=== PATIENT | female | born 1945 | race African-American/Black ===

== ENCOUNTER 2016-08-24 22:50 | Emergency (ER) | payer MEDICARE ==
--- NOTE | 2016-08-24 23:44 | RAD ---
CHEST ONE VIEW 08/24/16 HISTORY: Dyspnea. COMPARISON: Chest one view 04/30/16. FINDINGS: The heart size is enlarged with pulmonary venous congestion. No pneumothorax or large effusion. No a cute osseous abnormality. IMPRESSION: Cardiomegaly with mild pulmonary venous congestion. POS: [facility]
[2016-08-24] MEDS ORDERED: Furosemide 40 MG/4 ML VIAL ONE (23:45)
[2016-08-24 23:47] LABS: #Eosinphils 0.1 thou/uL (0.0-0.7); #Lymphocytes 2.1 thou/uL (1.20-3.40); #Monocytes 0.7 thou/uL (0.11-0.59); #Neutrophils 8.3 thou/uL (1.40-6.50); %Basophils 0.4 % (0.0-1.0); %Eosinophils 0.7 % (0.0-10.0); %Lymphocytes 18.5 % (21.0-51.0); %Monocytes 6.1 % (0.0-10.0); Hypochromia MODERATE=16-30 cells (100X) (0-5/hpf); Mean Platelet Volume 11.2 fL (7.4-10.4); Microcytosis SLIGHT = 6-15 cells (100X) (0-5/hpf); Ovalocytes SLIGHT = 2-5 cells (100X) (0-1/hpf); Red Blood Cell (RBC) Count 4.38 mill/uL (4.20-5.40); White Blood Cell (WBC) Count 11.2 thou/uL (4.8-10.8)
[2016-08-24 23:48] LABS: ALT (SGPT) 12 U/L (0-55); AST (SGOT) 9 U/L (5-34); Alkaline Phosphatase 49 U/L (40-150); Anion Gap 12 mmol/L (10-20); BUN (Urea Nitrogen) 14 mg/dL (9.8-20.1); Bilirubin, Total 0.3 mg/dL (0.2-1.2); CK (CPK) 41 U/L (29-168); Calc. Creatinine Clearance 0 mL/min (70-130); Calcium 8.8 mg/dL (7.8-10.44); Carbon Dioxide 30 mmol/L (23-31); Chloride 106 mmol/L (98-107); Estimated GFR-MDRD 69; Globulin 3.4 g/dL (2.4-3.5); Protein, Total 6.7 g/dL (5.8-8.1)
[2016-08-24 23:49] LABS: Troponin I 0.031 ng/mL (< 0.028)
== END 2016-08-25 01:31 | disposition short-term general hospital (02) ==
LOC: NAV ERS 22:50
DX: I50.9 Heart failure, unspecified (principal); I25.2 Old myocardial infarction; I10 Essential (primary) hypertension; J45.909 Unspecified asthma, uncomplicated; F32.9 Major depressive disorder, single episode, unspecified; F17.210 Nicotine dependence, cigarettes, uncomplicated
CPT/HCPCS: 51702; 71010; 80053; 82550; 82553; 83880; 84484; 85025; 93005; 94760; 96374; J1940

== ENCOUNTER 2018-09-16 10:34 | Emergency (ER) | payer MEDICARE ==
[2018-09-16 11:31] LABS: #Basophils 0.1 thou/uL (0.0-0.2); #Lymphocytes 1.2 thou/uL (1.20-3.40); #Monocytes 0.6 thou/uL (0.11-0.59); #Neutrophils 5.9 thou/uL (1.40-6.50); %Basophils 0.8 % (0.0-1.0); %Eosinophils 0.5 % (0.0-10.0); %Lymphocytes 15.2 % (21.0-51.0); %Monocytes 7.9 % (0.0-10.0); %Neutrophils 75.6 % (42.0-75.0); Hemoglobin 7.9 g/dL (12.0-16.0); Hypochromia SLIGHT = 6-15 cells (100X) (0-5/hpf); MDiff Complete? YES; Mean Corpuscular HGB CONC 29.2 g/dL (32.0-36.0); Mean Corpuscular Hemoglobin 24.8 pg (27.0-31.0); Mean Platelet Volume 9.9 fL (7.4-10.4); Ovalocytes SLIGHT = 2-5 cells (100X) (0-1/hpf); Platelet Count 170 thou/uL (130-400); RBC Distribution Width 16.9 % (11.5-14.5); Red Blood Cell (RBC) Count 3.17 mill/uL (4.20-5.40); White Blood Cell (WBC) Count 7.8 thou/uL (4.8-10.8)
[2018-09-16 11:46] LABS: ALT (SGPT) 25 U/L (8-55); AST (SGOT) 27 U/L (5-34); Albumin 3.9 g/dL (3.4-4.8); Alkaline Phosphatase 68 U/L (40-150); Anion Gap 13 mmol/L (10-20); BUN (Urea Nitrogen) 39 mg/dL (9.8-20.1); Bilirubin, Total 0.5 mg/dL (0.2-1.2); Calc. Creatinine Clearance 0 mL/min (70-130); Calcium 9.2 mg/dL (7.8-10.44); Carbon Dioxide 25 mmol/L (23-31); Chloride 105 mmol/L (98-107); Estimated GFR-MDRD 20; Globulin 3.4 g/dL (2.4-3.5); Glucose 133 mg/dL (80-115); Potassium 4.1 mmol/L (3.5-5.1); Protein, Total 7.3 g/dL (6.0-8.3); Sodium 139 mmol/L (136-145)
[2018-09-16] MEDS ORDERED: Furosemide 40 MG/4 ML VIAL ONE (11:53)
--- NOTE | 2018-09-16 12:02 | RAD ---
RIGHT RIBS: Date: 09/16/18 HISTORY: Injury. Shortness of breath. COMPARISON: Radiograph dated 09/16/18. FINDINGS: No acute displaced right side rib fracture. No pneumothorax or secondary sequelae of right-sided rib fracture. other findings in the chest are similar. IMPRESSION: No displaced right-sided rib fracture or pneumothorax. POS: [facility]
[2018-09-16] MEDS ORDERED: Morphine 4 MG/ML VIAL ONE (12:10)
--- NOTE | 2018-09-16 12:14 | RAD ---
CHEST 2 VIEWS: Date: 09/16/18 HISTORY: Dyspnea. COMPARISON: Radiograph dated 08/24/16. FINDINGS: Heart size is enlarged. Moderate edema. Moderate effusions. No pneumothorax. IMPRESSION: Findings suggesting decompensated congestive heart failure. POS: [facility]
[2018-09-16 12:15] LABS: CKMB 1.7 ng/mL (0-6.6)
== END 2018-09-16 13:43 | disposition short-term general hospital (02) ==
LOC: NAV ERS 10:34
DX: I13.2 Hypertensive heart and chronic kidney disease with heart failure and with stage 5 chronic kidney disease, or end stage renal disease (principal); I50.9 Heart failure, unspecified; N18.9 Chronic kidney disease, unspecified; J44.9 Chronic obstructive pulmonary disease, unspecified; D63.1 Anemia in chronic kidney disease; E11.22 Type 2 diabetes mellitus with diabetic chronic kidney disease; I25.10 Atherosclerotic heart disease of native coronary artery without angina pectoris; R79.89 Other specified abnormal findings of blood chemistry; M19.90 Unspecified osteoarthritis, unspecified site; E78.5 Hyperlipidemia, unspecified; F20.9 Schizophrenia, unspecified; F17.210 Nicotine dependence, cigarettes, uncomplicated; Z79.899 Other long term (current) drug therapy; Z79.84 Long term (current) use of oral hypoglycemic drugs
CPT/HCPCS: 36415; 71046; 80053; 82553; 83880; 84484; 85025; 94660; 96374; 96375; J1940; J2270

== ENCOUNTER 2019-02-23 11:22 | Emergency (ER) | payer MEDICARE ==
[2019-02-23] MEDS ORDERED: methylPREDNISolone Sod Succ/PF 125 MG/2 ML VIAL ONE (11:50)
[2019-02-23] MEDS ORDERED: Nitroglycerin 2% Ointment 1 INCH/1 GM Packet ONE (11:54)
[2019-02-23] MEDS ORDERED: Furosemide 40 MG/4 ML VIAL ONE (11:56)
[2019-02-23 12:09] LABS: ALT (SGPT) 13 U/L (8-55); AST (SGOT) 17 U/L (5-34); Albumin 3.8 g/dL (3.4-4.8); Alkaline Phosphatase 43 U/L (40-150); Anion Gap 16 mmol/L (10-20); BUN (Urea Nitrogen) 34 mg/dL (9.8-20.1); Bilirubin, Total 0.2 mg/dL (0.2-1.2); CK (CPK) 33 U/L (29-168); Calc. Creatinine Clearance 0 mL/min (70-130); Carbon Dioxide 25 mmol/L (23-31); Chloride 105 mmol/L (98-107); Estimated GFR-MDRD 32; Globulin 2.9 g/dL (2.4-3.5); Glucose 134 mg/dL (83-110); Potassium 4.5 mmol/L (3.5-5.1); Protein, Total 6.7 g/dL (6.0-8.3); Sodium 141 mmol/L (136-145)
--- NOTE | 2019-02-23 12:12 | RAD ---
EXAM: CHEST ONE VIEW HISTORY: Shortness of breath 1 week COMPARISON: 09/21/2018 FINDINGS: A metallic powerpack device again overlies the left chest. The cardiac silhouette is in enlarged. Pul monary vasculature is mildly increased. There is suboptimal evaluation of the left lung base due to the enlarged cardiac silhouette and underpenetrated technique of the exam. There has been improvement in aeration at the right lung base compared to the prior study, but there is increased linear density in the right midlung zone probably related to atelectasis. No other interval change. IMPRESSION: 1. Cardiomegaly with mild pulmonary vascular congestion. Correlation for mild CHF is recommended. 2. Atelectasis right midlung zone. There has been improved aeration at the right lung base compared t o the prior study. However, there is suggestion of a small right pleural effusion.
[2019-02-23 12:30] LABS: #Lymphocytes 0.5 thou/uL (1.20-3.40); #Monocytes 0.3 thou/uL (0.11-0.59); %Basophils 0.5 % (0.0-1.0); %Eosinophils 0.2 % (0.0-10.0); %Lymphocytes 6.9 % (21.0-51.0); %Monocytes 3.5 % (0.0-10.0); Hemoglobin 6.9 g/dL (12.0-16.0); Mean Corpuscular Hemoglobin 23.8 pg (27.0-31.0); Mean Corpuscular Volume 84.9 fL (78.0-98.0); Platelet Count 151 thou/uL (130-400); Red Blood Cell (RBC) Count 2.89 mill/uL (4.20-5.40); White Blood Cell (WBC) Count 7.9 thou/uL (4.8-10.8)
[2019-02-23 12:41] LABS: Anisocytosis SLIGHT = 6-15 cells (100X) (0-5/hpf); Hypochromia MODERATE=16-30 cells (100X) (0-5/hpf); MDiff Complete? YES; Platelet Morphology Comment Appears Adequate
[2019-02-23 12:56] LABS: Base Excess-Venous 0.4 mmol/L (-2.0 to 3.0); Bicarbonate (HCO3v) 27.1 mmol/L (22.0-28.0); CO2 Tension (PvCO2) 54.1 mmHg (40.0-50.0); Hemoglobin - Calc 8.5 g/dL (12.0-16.0)
[2019-02-23 12:57] LABS: Calcium, Ionized 1.19 mmol/L (See Comments:); Chloride 106 mmol/L (98-107); Potassium 4.6 mmol/L (3.5-5.1); Sodium 143 mmol/L (138-145); T. Carbon Dioxide 28.7 mmol/L (22.0-28.0)
[2019-02-23] MEDS ORDERED: hydrALAZINE 20 MG/ML VIAL ONE (13:19)
[2019-02-23] MEDS ORDERED: niCARdipine 20MG In NaCl 20 MG/200 ML BAG ONE (13:49)
== END 2019-02-23 15:38 | disposition short-term general hospital (02) ==
LOC: NAV ERS 11:22
DX: I11.0 Hypertensive heart disease with heart failure (principal); I50.9 Heart failure, unspecified; D64.9 Anemia, unspecified; I25.10 Atherosclerotic heart disease of native coronary artery without angina pectoris; J44.9 Chronic obstructive pulmonary disease, unspecified; E03.9 Hypothyroidism, unspecified; I25.2 Old myocardial infarction; E11.9 Type 2 diabetes mellitus without complications; E78.5 Hyperlipidemia, unspecified; F32.9 Major depressive disorder, single episode, unspecified; M19.90 Unspecified osteoarthritis, unspecified site; F20.9 Schizophrenia, unspecified; F17.210 Nicotine dependence, cigarettes, uncomplicated; Z79.52 Long term (current) use of systemic steroids; Z79.899 Other long term (current) drug therapy; Z79.84 Long term (current) use of oral hypoglycemic drugs
CPT/HCPCS: 36416; 71045; 80053; 82330; 82550; 82803; 83605; 83880; 84484; 85025; 87804; 93005; 94640; 96365; 96366; 96375; J0360; J1940; J2930; J7620

== ENCOUNTER 2019-04-14 05:59 | Emergency (ER) | payer MEDICARE ==
[2019-04-14] MEDS ORDERED: Furosemide 40 MG/4 ML VIAL ONE (06:26)
[2019-04-14 06:57] LABS: ALT (SGPT) 11 U/L (8-55); AST (SGOT) 9 U/L (5-34); Albumin 3.8 g/dL (3.4-4.8); Alkaline Phosphatase 41 U/L (40-110); Anion Gap 17 mmol/L (10-20); BUN (Urea Nitrogen) 46 mg/dL (9.8-20.1); Bilirubin, Total 0.3 mg/dL (0.2-1.2); CK (CPK) 42 U/L (29-168); Calc. Creatinine Clearance 0 mL/min (70-130); Calcium 8.7 mg/dL (7.8-10.44); Carbon Dioxide 23 mmol/L (23-31); Chloride 106 mmol/L (98-107); Estimated GFR-MDRD 28; Globulin 2.6 g/dL (2.4-3.5); Glucose 182 mg/dL (83-110); Potassium 4.4 mmol/L (3.5-5.1); Protein, Total 6.4 g/dL (6.0-8.3); Sodium 142 mmol/L (136-145)
[2019-04-14 06:59] LABS: #Lymphocytes 0.9 thou/uL (1.20-3.40); #Monocytes 0.6 thou/uL (0.11-0.59); #Neutrophils 8.7 thou/uL (1.40-6.50); %Basophils 0.4 % (0.0-1.0); %Eosinophils 0.1 % (0.0-10.0); %Lymphocytes 8.9 % (21.0-51.0); %Monocytes 5.8 % (0.0-10.0); %Neutrophils 84.8 % (42.0-75.0); Mean Corpuscular HGB CONC 29.5 g/dL (32.0-36.0); Mean Corpuscular Hemoglobin 23.3 pg (27.0-31.0); Mean Corpuscular Volume 78.9 fL (78.0-98.0); Mean Platelet Volume 13.1 fL (7.4-10.4); Platelet Count 146 thou/uL (130-400); RBC Distribution Width 15.2 % (11.5-14.5); Red Blood Cell (RBC) Count 2.58 mill/uL (4.20-5.40); White Blood Cell (WBC) Count 10.3 thou/uL (4.8-10.8)
[2019-04-14 07:00] LABS: Anisocytosis SLIGHT = 6-15 cells (100X) (0-5/hpf); Hypochromia MODERATE=16-30 cells (100X) (0-5/hpf); MDiff Complete? YES; Ovalocytes SLIGHT = 2-5 cells (100X) (0-1/hpf); Poikilocytosis SLIGHT = 6-15 cells (100X) (0-5/hpf)
[2019-04-14 07:05] LABS: CKMB 1.9 ng/mL (0-6.6)
--- NOTE | 2019-04-14 09:09 | RAD ---
SINGLE VIEW CHEST: HISTORY: CHF and shortness of breath. COMPARISON: 02/23/2019 FINDINGS: A single view of the chest shows an enlarged but stable cardiomediastinal silhouette with atheroscler otic calcifications in the aorta. A cardiac monitoring device projects over the left chest wall. Opac ities seen in both lung bases, which likely represent pleural effusions and adjacent atelectasis vers us infiltrates. IMPRESSION: Bilateral pleural effusions with adjacent atelectasis versus infiltrates. POS: [facility]
== END 2019-04-14 07:25 | disposition short-term general hospital (02) ==
LOC: NAV ERS 05:59
DX: I11.0 Hypertensive heart disease with heart failure (principal); I50.9 Heart failure, unspecified; I25.10 Atherosclerotic heart disease of native coronary artery without angina pectoris; J44.9 Chronic obstructive pulmonary disease, unspecified; E03.9 Hypothyroidism, unspecified; M19.90 Unspecified osteoarthritis, unspecified site; I25.2 Old myocardial infarction; E11.9 Type 2 diabetes mellitus without complications; E78.5 Hyperlipidemia, unspecified; F20.9 Schizophrenia, unspecified; F32.9 Major depressive disorder, single episode, unspecified; F17.210 Nicotine dependence, cigarettes, uncomplicated
CPT/HCPCS: 71045; 80053; 82550; 82553; 83880; 84484; 85025; 93005; 94760; 96374; J1940

== ENCOUNTER 2019-06-17 20:16 | Inpatient (IN) | payer MEDICARE ==
[2019-06-17] MEDS ORDERED: Scopolamine 1.5 mg/72 hour Patch TOP SCH (22:00)
[2019-06-17] MEDS: cloNIDine 0.1mg/24 Hour PATCH TD SCH (22:25)
[2019-06-17] MEDS: hydrOXYzine 25 MG TAB PER TUBE PRN (22:29)
[2019-06-17] MEDS: hydrALAZINE 25 MG TAB PO SCH (22:29)
[2019-06-18] MEDS: hydrALAZINE 25 MG TAB PO SCH ×3 (05:32→22:00)
[2019-06-18] MEDS: Levothyroxine Sodium 25 MCG TAB PER TUBE SCH (05:33)
[2019-06-18] MEDS: levETIRAcetam 500 mg/5 ml Oral Solution PER TUBE SCH ×2 (08:26→20:54)
[2019-06-18] MEDS: Ascorbic Acid 500 mg Chewable Tablet PER TUBE SCH (08:26)
[2019-06-18] MEDS: glipiZIDE 5 MG TAB PER TUBE SCH ×2 (08:26→17:23)
[2019-06-18] MEDS: Amlodipine 5 MG TAB PER TUBE SCH (08:26)
[2019-06-18] MEDS: Pantoprazole 40 MG GRANULES PACKET PER TUBE SCH (08:27)
[2019-06-18] MEDS: Carvedilol 6.25 MG TAB PER TUBE SCH ×2 (08:27→17:23)
[2019-06-18 13:34] LABS: INR-International Normal Ratio 1.4; Prothrombin Time 16.9 SEC (12.0-14.7)
[2019-06-18 13:43] LABS: #Basophils 0.1 thou/uL (0.0-0.2); #Eosinphils 0.1 thou/uL (0.0-0.7); #Lymphocytes 2.1 thou/uL (1.20-3.40); #Monocytes 0.6 thou/uL (0.11-0.59); #Neutrophils 3.9 thou/uL (1.40-6.50); %Lymphocytes 31.1 % (21.0-51.0); %Monocytes 8.2 % (0.0-10.0); %Neutrophils 58.7 % (42.0-75.0); Mean Corpuscular HGB CONC 31.8 g/dL (32.0-36.0); Mean Corpuscular Hemoglobin 26.1 pg (27.0-31.0); Mean Platelet Volume 10.3 fL (7.4-10.4); Platelet Count 205 thou/uL (130-400); RBC Distribution Width 15.4 % (11.5-14.5); Red Blood Cell (RBC) Count 2.68 mill/uL (4.20-5.40); White Blood Cell (WBC) Count 6.7 thou/uL (4.8-10.8)
[2019-06-18 14:14] LABS: ALT (SGPT) 10 U/L (8-55); AST (SGOT) 15 U/L (5-34); Albumin 3.5 g/dL (3.4-4.8); Alkaline Phosphatase 48 U/L (40-110); Anion Gap 13 mmol/L (10-20); BUN (Urea Nitrogen) 47 mg/dL (9.8-20.1); Bilirubin, Total 0.2 mg/dL (0.2-1.2); Calc. Creatinine Clearance 47 mL/min (70-130); Calcium 9.5 mg/dL (7.8-10.44); Carbon Dioxide 23 mmol/L (23-31); Chloride 105 mmol/L (98-107); Estimated GFR-MDRD 43; Globulin 4.2 g/dL (2.4-3.5); Glucose 117 mg/dL (83-110); Potassium 4.4 mmol/L (3.5-5.1); Protein, Total 7.7 g/dL (6.0-8.3); Sodium 137 mmol/L (136-145)
[2019-06-18] MEDS: Lorazepam 0.5 MG TAB PER TUBE PRN (14:41)
--- NOTE | 2019-06-18 17:19 | HP ---
HISTORY OF PRESENT ILLNESS: The patient is a 73-year-old black female, never before seen by myself, who apparently was followed at [facility] several years for uncontrolled diabetes and hypertension with subsequent hypertensive and diabetic nephropathy, who apparently suffered a cardiac arrest several months ago and required ventilation long-term and subsequent tracheostomy and PEG tube placement. She has recovered, but has some anoxic brain injury with increased agitation, decreased memory, noncompliance. She however has recovered from acute on chronic renal failure with her creatinine returning to baseline of 1.4 with a GFR 43. Her blood pressure has been well controlled on multiple medications in the hospital, as has her diabetes. She has had her tracheostomy removed accidentally, but has been seen by ENT with laryngoscopy showing no difficulty and has been prepared for speech therapy and initial swallowing. She is a very poor historian and all this history is obtained from the old chart. Her review of systems is essentially negative as she is very agitated. Denies all symptoms except she wants her Saleh catheter out. SOCIAL HISTORY: She lives alone. She denies any alcohol or drug abuse. ALLERGIES: SHE IS ALLERGIC TO DESHAWN INHIBITORS AND ARBS. PAST MEDICAL HISTORY: Only history was the PEG and tracheostomy. PHYSICAL EXAMINATION: VITAL SIGNS: Temperature is 96, pulse 73, respirations 20, O2 saturations 96% on room air, blood pressure 140/63. GENERAL: Shows an elderly black female, who is awake and alert, but agitated, oriented to person, but not to place and time. Answers questions, but not occasionally appropriately. HEENT: Pupils are equal, round, and reactive to light and accommodation. Sclerae anicteric. Conjunctivae pale. Oral mucous membranes well hydrated. NECK: Supple with a healing tracheostomy site. LUNGS: Clear. CARDIAC: Shows regular rhythm. No gallops or murmurs. ABDOMEN: Soft and nontender with no masses or organomegaly. PEG tube is in place. SKIN/EXTREMITIES: Display no edema, clubbing, or cyanosis. GENITOURINARY: Saleh catheter is in place. NEUROLOGIC: The patient has diffuse generalized weakness with no focal findings. LABORATORY DATA: Shows sodium 137, potassium 4.4, chloride 105, bicarb 23, BUN 47, creatinine 1.44, glucose 117, calcium 9.5, total bilirubin 0.2, AST 15, ALT 10, alkaline phosphatase 48, albumin 3.5, globulin 4.2, amylase 109. White count 6700; hematocrit 22; hemoglobin 7, which is stable. PT is 16.9, INR 1.4. ASSESSMENT: The patient is an elderly black female with a long history of hypertension, diabetes, possible poor control with chronic kidney disease stage 3, who has suffered a cardiac arrest with subsequent anoxic brain injury requiring long-term ventilation and percutaneous endoscopic gastrostomy tube and tracheostomy. She has now had her tracheostomy removed and has passed a bedside swallowing study and has been started on a pureed diet and thickened liquids. She has been found to have incontinence of bowel and urine and came with a Saleh catheter. She also was found to have significantly chronic anemia most likely of chronic disease with no evidence of bleeding. PLAN: Continue medications of carvedilol 12.5 twice daily, Catapres TTS 2 patch weekly, doxazosin 2 mg nightly, hydralazine 100 mg every 8 hours. She also will be continued on her glipizide 5 mg twice daily for diabetes, and on Keppra 500 twice daily for seizure precautions, levothyroxine 25 mcg daily for hypothyroidism. Her scopolamine patch will be discontinued and she will be started on PT and OT, who feels that she could benefit from improved lower extremity strength, bed mobility, transfers. She will hopefully have her diet advanced and may have her Keppra discontinued in the future. Job ID: [id number]
[2019-06-18] MEDS: Doxazosin 2 MG TAB PER TUBE SCH (20:54)
[2019-06-18 21:45] LABS: Hemoglobin A1c 5.5 % (4.0-6.0)
[2019-06-19] MEDS: hydrALAZINE 25 MG TAB PO SCH ×3 (05:28→20:49)
[2019-06-19] MEDS: Levothyroxine Sodium 25 MCG TAB PER TUBE SCH (05:28)
[2019-06-19 05:37] LABS: Bilirubin Negative (Negative); Blood, Urine Negative (Negative); Clarity Clear (Clear); Glucose, Urine (Dipstick) Negative (Negative); Leukocyte Large (Negative); Nitrite Negative (Negative); Protein, Urine (Dipstick) 30 mg/dL (Neg-Trace); Urobilinogen 0.2 mg/dL (Less than 2)
[2019-06-19 05:45] LABS: Bacteria/HPF None Seen HPF (None Seen); RBC/HPF None Seen HPF (0-3); WBC/HPF None Seen HPF (0-3)
[2019-06-19 05:46] LABS: Mucous/LPF 1+ LPF (<2+)
[2019-06-19] MEDS: levETIRAcetam 500 mg/5 ml Oral Solution PER TUBE SCH ×2 (08:01→20:49)
[2019-06-19] MEDS: glipiZIDE 5 MG TAB PER TUBE SCH ×2 (08:02→16:50)
[2019-06-19] MEDS: Carvedilol 6.25 MG TAB PER TUBE SCH ×2 (08:02→16:49)
[2019-06-19] MEDS: Amlodipine 5 MG TAB PER TUBE SCH (08:02)
[2019-06-19] MEDS: Ascorbic Acid 500 mg Chewable Tablet PER TUBE SCH (08:02)
[2019-06-19] MEDS: Pantoprazole 40 MG GRANULES PACKET PER TUBE SCH (08:03)
[2019-06-19] MEDS: hydrOXYzine 25 MG TAB PER TUBE PRN ×2 (14:05→20:50)
[2019-06-19] MEDS: Doxazosin 2 MG TAB PER TUBE SCH (20:49)
[2019-06-20] MEDS: hydrALAZINE 25 MG TAB PO SCH ×3 (04:49→21:03)
[2019-06-20] MEDS: Levothyroxine Sodium 25 MCG TAB PER TUBE SCH (04:50)
[2019-06-20] MEDS: Lorazepam 0.5 MG TAB PER TUBE PRN ×3 (04:50→21:03)
--- NOTE | 2019-06-20 07:02 | PRG ---
DATE OF SERVICE: 06/19/2019 SUBJECTIVE: The patient lying in the bed, resting well, much more comfortable. Has complaints of Saleh irritation. Has been eating better and been less agitated. OBJECTIVE: VITAL SIGNS: Shows temperature is 97, pulse 72, respirations 18, O2 sats 98% on room air, and blood pressure 161/66. Accu-Cheks ranged from 66 to 132. LUNGS: Remain clear. CARDIAC: Shown regular rhythm. No gallops or murmurs. ABDOMEN: Soft, nontender. ASSESSMENT: 1. Stable hypertension. 2. Type 2 diabetes, controlled to goal, on glipizide, and may need to decrease dose. 3. History of incontinence with Saleh catheter in place, and we will continue at this time in order to prevent decubitus. 4. History of cardiac arrest and anoxic brain damage, appears to be stable. Cooperating better with therapy. 5. History of long-term ventilation and tracheostomy, now removed, and breathing well. 6. Percutaneous gastrostomy tube in place, but she has passed bedside swallowing study, and she is doing well on pureed diet, thickened liquids. 7. Severe anemia most likely of chronic disease. We will continue to monitor. PLAN: 1. Continue PT/OT. Continue to monitor for aspiration. 2. Continue seizure precautions. 3. Continue Accu-Cheks and will decrease glipizide to 5 mg daily and starting tomorrow. 4. Continue to monitor on blood pressure control. Job ID: [id number]
[2019-06-20] MEDS: Amlodipine 5 MG TAB PER TUBE SCH (08:10)
[2019-06-20] MEDS: Carvedilol 6.25 MG TAB PER TUBE SCH ×2 (08:10→16:51)
[2019-06-20] MEDS: glipiZIDE 5 MG TAB PER TUBE SCH (08:10)
[2019-06-20] MEDS: Pantoprazole 40 MG GRANULES PACKET PER TUBE SCH (08:11)
[2019-06-20] MEDS: levETIRAcetam 500 mg/5 ml Oral Solution PER TUBE SCH ×2 (08:11→21:03)
[2019-06-20] MEDS: Ascorbic Acid 500 mg Chewable Tablet PER TUBE SCH (08:11)
[2019-06-20] MEDS: Doxazosin 2 MG TAB PER TUBE SCH (21:03)
[2019-06-20] MEDS: hydrOXYzine 25 MG TAB PER TUBE PRN (21:03)
[2019-06-21] MEDS: hydrALAZINE 25 MG TAB PO SCH ×3 (05:04→21:57)
[2019-06-21] MEDS: Levothyroxine Sodium 25 MCG TAB PER TUBE SCH (05:05)
[2019-06-21 05:39] LABS: ALT (SGPT) 9 U/L (8-55); AST (SGOT) 15 U/L (5-34); Albumin 3.5 g/dL (3.4-4.8); Alkaline Phosphatase 46 U/L (40-110); Anion Gap 14 mmol/L (10-20); BUN (Urea Nitrogen) 41 mg/dL (9.8-20.1); Bilirubin, Total 0.2 mg/dL (0.2-1.2); Calc. Creatinine Clearance 43 mL/min (70-130); Calcium 9.7 mg/dL (7.8-10.44); Carbon Dioxide 23 mmol/L (23-31); Chloride 107 mmol/L (98-107); Estimated GFR-MDRD 38; Glucose 111 mg/dL (83-110); Potassium 4.2 mmol/L (3.5-5.1); Protein, Total 7.5 g/dL (6.0-8.3); Sodium 140 mmol/L (136-145)
[2019-06-21 05:51] LABS: Anisocytosis MODERATE=16-30 cells (100X) (0-5/hpf); Band 7 % (5-11); Eosinophils 2 % (0-10); Hemoglobin 6.7 g/dL (12.0-16.0); Hypochromia MODERATE=16-30 cells (100X) (0-5/hpf); Lymphocytes 24 % (21-51); MDiff Complete? YES; Mean Corpuscular HGB CONC 32.1 g/dL (32.0-36.0); Mean Corpuscular Hemoglobin 26.2 pg (27.0-31.0); Mean Corpuscular Volume 81.7 fL (78.0-98.0); Mean Platelet Volume 8.5 fL (7.4-10.4); Monocytes 4 % (0-10); Neutrophil 59 % (42-75); Ovalocytes MODERATE= 6-15 cells (100X) (0-1/hpf); Platelet Count 195 thou/uL (130-400); Platelet Morphology Comment Appears Adequate; Poikilocytosis MODERATE=16-30 cells (100X) (0-5/hpf); RBC Distribution Width 15.5 % (11.5-14.5); Reactive Lymphocytes 4 % (0-10); Red Blood Cell (RBC) Count 2.56 mill/uL (4.20-5.40); White Blood Cell (WBC) Count 5.1 thou/uL (4.8-10.8)
[2019-06-21] MEDS: glipiZIDE 5 MG TAB PER TUBE SCH (08:55)
[2019-06-21] MEDS: levETIRAcetam 500 mg/5 ml Oral Solution PER TUBE SCH ×2 (08:55→21:56)
[2019-06-21] MEDS: Ascorbic Acid 500 mg Chewable Tablet PER TUBE SCH (08:56)
[2019-06-21] MEDS: Carvedilol 6.25 MG TAB PER TUBE SCH ×2 (08:56→17:56)
[2019-06-21] MEDS: Pantoprazole 40 MG GRANULES PACKET PER TUBE SCH (08:57)
[2019-06-21] MEDS: Amlodipine 5 MG TAB PER TUBE SCH (08:57)
[2019-06-21] MEDS: Doxazosin 2 MG TAB PER TUBE SCH (21:57)
[2019-06-22] MEDS: Levothyroxine Sodium 25 MCG TAB PER TUBE SCH (05:43)
[2019-06-22] MEDS: hydrALAZINE 25 MG TAB PO SCH ×3 (06:37→21:41)
[2019-06-22] MEDS: Amlodipine 5 MG TAB PER TUBE SCH (08:13)
[2019-06-22] MEDS: glipiZIDE 5 MG TAB PER TUBE SCH (08:13)
[2019-06-22] MEDS: Pantoprazole 40 MG GRANULES PACKET PER TUBE SCH (08:13)
[2019-06-22] MEDS: Ascorbic Acid 500 mg Chewable Tablet PER TUBE SCH (08:13)
[2019-06-22] MEDS: Carvedilol 6.25 MG TAB PER TUBE SCH ×2 (08:13→17:41)
[2019-06-22] MEDS: levETIRAcetam 500 mg/5 ml Oral Solution PER TUBE SCH ×2 (08:14→21:33)
[2019-06-22] MEDS: hydrOXYzine 25 MG TAB PER TUBE PRN (21:33)
[2019-06-22] MEDS: Doxazosin 2 MG TAB PER TUBE SCH (21:33)
[2019-06-22] MEDS: Lorazepam 0.5 MG TAB PER TUBE PRN (21:33)
[2019-06-23] MEDS: Lorazepam 0.5 MG TAB PER TUBE PRN ×2 (04:18→14:45)
[2019-06-23] MEDS: Levothyroxine Sodium 25 MCG TAB PER TUBE SCH (05:51)
[2019-06-23] MEDS: hydrALAZINE 25 MG TAB PO SCH ×3 (05:52→21:14)
[2019-06-23] MEDS: levETIRAcetam 500 mg/5 ml Oral Solution PER TUBE SCH ×2 (08:34→21:14)
[2019-06-23] MEDS: Amlodipine 5 MG TAB PER TUBE SCH (08:34)
[2019-06-23] MEDS: Ascorbic Acid 500 mg Chewable Tablet PER TUBE SCH (08:34)
[2019-06-23] MEDS: glipiZIDE 5 MG TAB PER TUBE SCH (08:34)
[2019-06-23] MEDS: Carvedilol 6.25 MG TAB PER TUBE SCH ×2 (08:34→17:06)
[2019-06-23] MEDS: Pantoprazole 40 MG GRANULES PACKET PER TUBE SCH (08:35)
--- NOTE | 2019-06-23 18:42 | PRG ---
DATE OF SERVICE: 06/20/2019 SUBJECTIVE: The patient is complaining of Saleh catheter and states , but is eating better, and is awaiting therapy tomorrow. OBJECTIVE: VITAL SIGNS: Show temperature is 96, pulse 76, respirations 20, O2 sats 96% on room air, and blood pressure 140/66. LUNGS: Clear. CARDIAC: Shows regular rhythm. ABDOMEN: Soft, nontender. Percutaneous gastrostomy tube in place, but not being used. PLAN: Continue Accu-Cheks. Continue glipizide 5 daily. Continue to monitor blood pressure control. Continue seizure precautions. Start PT/OT tomorrow. Job ID: [id number]
--- NOTE | 2019-06-23 18:43 | PRG ---
DATE OF SERVICE: 06/21/2019 SUBJECTIVE: The patient feels well with no complaints, lying in the bed, and states she has not been able to do much therapy. OBJECTIVE: VITAL SIGNS: Temperature is 98, pulse 67, respirations 20, O2 sats 97% on room air, blood pressure 153/66. LABORATORY DATA: White count 5100, hematocrit 20, hemoglobin 6.7. PT 16.9, INR 1.4. Sodium 140, potassium 4.2, chloride 107, bicarb 23, BUN 41, creatinine 1.6, globulin 4.0, AST 15, ALT 9. ASSESSMENT: 1. with anemia of chronic disease, appears to be worsening. We will check stool guaiacs again. 2. Pseudomonas urinary tract infection, Proteus urinary tract infection, sensitive to Levaquin that the patient is on. We will continue. We will discontinue Saleh. 3. Severe deconditioning with minimal improved therapy. 4. Hypertension, controlled to goal. 5. Type 2B diabetes, controlled to goal. PLAN: 1. Continue PT/OT. 2. Discontinue Saleh catheter. 3. Continue Levaquin for urinary tract infection. 4. Continue to monitor blood pressure closely. 5. Continue Accu-Cheks to monitor and titrate and control diabetes. Job ID: [id number]
[2019-06-23] MEDS: Doxazosin 2 MG TAB PER TUBE SCH (21:14)
[2019-06-24 05:46] LABS: #Basophils 0.1 thou/uL (0.0-0.2); #Eosinphils 0.1 thou/uL (0.0-0.7); #Lymphocytes 1.7 thou/uL (1.20-3.40); #Monocytes 0.5 thou/uL (0.11-0.59); #Neutrophils 3.1 thou/uL (1.40-6.50); %Eosinophils 1.5 % (0.0-10.0); %Lymphocytes 30.8 % (21.0-51.0); %Monocytes 9.3 % (0.0-10.0); %Neutrophils 57.4 % (42.0-75.0); Hemoglobin 6.7 g/dL (12.0-16.0); Mean Corpuscular HGB CONC 31.1 g/dL (32.0-36.0); Mean Corpuscular Hemoglobin 25.6 pg (27.0-31.0); Mean Corpuscular Volume 82.4 fL (78.0-98.0); Mean Platelet Volume 8.7 fL (7.4-10.4); Platelet Count 197 thou/uL (130-400); RBC Distribution Width 15.9 % (11.5-14.5); Red Blood Cell (RBC) Count 2.61 mill/uL (4.20-5.40); White Blood Cell (WBC) Count 5.4 thou/uL (4.8-10.8)
[2019-06-24 06:05] LABS: ALT (SGPT) 7 U/L (8-55); AST (SGOT) 12 U/L (5-34); Albumin 3.2 g/dL (3.4-4.8); Alkaline Phosphatase 40 U/L (40-110); Anion Gap 14 mmol/L (10-20); BUN (Urea Nitrogen) 32 mg/dL (9.8-20.1); Bilirubin, Total 0.2 mg/dL (0.2-1.2); Calc. Creatinine Clearance 48 mL/min (70-130); Calcium 9.4 mg/dL (7.8-10.44); Carbon Dioxide 22 mmol/L (23-31); Chloride 109 mmol/L (98-107); Estimated GFR-MDRD 44; Globulin 3.7 g/dL (2.4-3.5); Glucose 104 mg/dL (83-110); Potassium 3.9 mmol/L (3.5-5.1); Protein, Total 6.9 g/dL (6.0-8.3); Sodium 141 mmol/L (136-145)
[2019-06-24] MEDS: hydrALAZINE 25 MG TAB PO SCH ×3 (06:09→20:50)
[2019-06-24] MEDS: Levothyroxine Sodium 25 MCG TAB PER TUBE SCH (06:10)
[2019-06-24] MEDS: Ascorbic Acid 500 mg Chewable Tablet PER TUBE SCH (08:39)
[2019-06-24] MEDS: Amlodipine 5 MG TAB PER TUBE SCH (08:39)
[2019-06-24] MEDS: Carvedilol 6.25 MG TAB PER TUBE SCH ×2 (08:39→17:01)
[2019-06-24] MEDS: glipiZIDE 5 MG TAB PER TUBE SCH (08:39)
[2019-06-24] MEDS: Pantoprazole 40 MG GRANULES PACKET PER TUBE SCH (08:40)
[2019-06-24] MEDS: levETIRAcetam 500 mg/5 ml Oral Solution PER TUBE SCH ×2 (08:40→20:47)
[2019-06-24] MEDS: cloNIDine 0.1mg/24 Hour PATCH TD SCH (20:50)
[2019-06-24] MEDS: Doxazosin 2 MG TAB PER TUBE SCH (20:50)
[2019-06-24] MEDS: Lorazepam 0.5 MG TAB PER TUBE PRN (20:51)
[2019-06-25] MEDS: Levothyroxine Sodium 25 MCG TAB PER TUBE SCH (05:30)
[2019-06-25] MEDS: hydrALAZINE 25 MG TAB PO SCH ×3 (05:32→20:23)
[2019-06-25] MEDS: Lorazepam 0.5 MG TAB PER TUBE PRN ×2 (08:30→20:24)
[2019-06-25] MEDS: Amlodipine 5 MG TAB PER TUBE SCH (08:30)
[2019-06-25] MEDS: glipiZIDE 5 MG TAB PER TUBE SCH (08:30)
[2019-06-25] MEDS: levETIRAcetam 500 mg/5 ml Oral Solution PER TUBE SCH ×2 (08:30→20:23)
[2019-06-25] MEDS: Ascorbic Acid 500 mg Chewable Tablet PER TUBE SCH (08:30)
[2019-06-25] MEDS: Pantoprazole 40 MG GRANULES PACKET PER TUBE SCH (08:30)
[2019-06-25] MEDS: Carvedilol 6.25 MG TAB PER TUBE SCH ×2 (08:30→17:51)
[2019-06-25] MEDS: Doxazosin 2 MG TAB PER TUBE SCH (20:23)
[2019-06-25 22:27] LABS: Ferritin 71.89 ng/mL (10-291)
[2019-06-26] MEDS: hydrALAZINE 25 MG TAB PO SCH ×3 (05:39→22:31)
[2019-06-26] MEDS: Levothyroxine Sodium 25 MCG TAB PER TUBE SCH (05:40)
[2019-06-26] MEDS: Ascorbic Acid 500 mg Chewable Tablet PER TUBE SCH (08:01)
[2019-06-26] MEDS: glipiZIDE 5 MG TAB PER TUBE SCH (08:01)
[2019-06-26] MEDS: Amlodipine 5 MG TAB PER TUBE SCH (08:02)
[2019-06-26] MEDS: Pantoprazole 40 MG GRANULES PACKET PER TUBE SCH (08:02)
[2019-06-26] MEDS: levETIRAcetam 500 mg/5 ml Oral Solution PER TUBE SCH ×2 (08:02→19:48)
[2019-06-26] MEDS: Carvedilol 6.25 MG TAB PER TUBE SCH ×2 (08:03→17:26)
[2019-06-26] MEDS: Lorazepam 0.5 MG TAB PER TUBE PRN ×2 (08:05→14:58)
--- NOTE | 2019-06-26 16:49 | PRG ---
DATE OF SERVICE: 06/26/2019 SUBJECTIVE: Ms. Kelley complains of right thumb pain. She feels like it strained. She feels like she needs a brace. I advised her that I will have OT evaluate her on Friday, and if she qualifies, I will go ahead and order an x-ray since it is pretty tender to touch, but I do not see any swelling, erythema, or redness consistent with crystal deposition disease. OBJECTIVE: VITAL SIGNS: She is afebrile, heart rate 73, respirations 19, oxygen saturation 100% on room air, blood pressure 146/68. CARDIOVASCULAR: S1 and S2 plus. RESPIRATORY: Normal vesicular breath sounds. ABDOMEN: Soft and nontender. Bowel sounds heard in all quadrants. EXTREMITIES: Without cyanosis or clubbing. Both hands look like they have some contractures requiring towels in both her palms. LABORATORY DATA: Her last CBC just done on the , shows a white count of 5.4 and hemoglobin of 6.7 with a hematocrit of 21.5. Blood sugars are 100, 144, 109, and 105. B12 and folic acid levels are good. Ferritin is 71.89. IMPRESSION: 1. Profound anemia, unknown etiology. Stool occult is pending. 2. Diabetes mellitus, type 2. 3. Hypertension. 4. History of cardiac arrest with resultant anoxic brain injury. PLAN: 1. Type and cross and transfuse 1 unit. 2. Continue current medications. 3. Nutritional support with heart-healthy ADA diet. 4. Accu-Cheks with sliding scale coverage. 5. DVT prophylaxis with mechanical PlexiPulses. 6. Decubitus precaution. 7. Stress ulcer prophylaxis. 8. Routine laboratory values. 9. OT evaluation for possible splinting. Job ID: [id number]
[2019-06-26] MEDS: Doxazosin 2 MG TAB PER TUBE SCH (19:48)
[2019-06-27] MEDS: hydrALAZINE 25 MG TAB PO SCH ×3 (05:17→20:28)
[2019-06-27] MEDS: Levothyroxine Sodium 25 MCG TAB PER TUBE SCH (05:18)
[2019-06-27 05:32] LABS: #Eosinphils 0.1 thou/uL (0.0-0.7); #Lymphocytes 1.9 thou/uL (1.20-3.40); #Monocytes 0.4 thou/uL (0.11-0.59); #Neutrophils 2.7 thou/uL (1.40-6.50); %Basophils 0.7 % (0.0-1.0); %Lymphocytes 36.8 % (21.0-51.0); %Monocytes 8.4 % (0.0-10.0); Hemoglobin 7.1 g/dL (12.0-16.0); Mean Corpuscular HGB CONC 31.4 g/dL (32.0-36.0); Mean Corpuscular Hemoglobin 26.1 pg (27.0-31.0); Mean Corpuscular Volume 83.2 fL (78.0-98.0); Mean Platelet Volume 9.1 fL (7.4-10.4); Platelet Count 199 thou/uL (130-400); Red Blood Cell (RBC) Count 2.74 mill/uL (4.20-5.40); White Blood Cell (WBC) Count 5.1 thou/uL (4.8-10.8)
[2019-06-27 05:40] LABS: Anion Gap 13 mmol/L (10-20); BUN (Urea Nitrogen) 30 mg/dL (9.8-20.1); Calc. Creatinine Clearance 49 mL/min (70-130); Calcium 9.2 mg/dL (7.8-10.44); Carbon Dioxide 22 mmol/L (23-31); Chloride 109 mmol/L (98-107); Estimated GFR-MDRD 45; Glucose 98 mg/dL (83-110); Potassium 3.8 mmol/L (3.5-5.1); Sodium 140 mmol/L (136-145)
[2019-06-27] MEDS: Pantoprazole 40 MG GRANULES PACKET PER TUBE SCH (08:21)
[2019-06-27] MEDS: Carvedilol 6.25 MG TAB PER TUBE SCH ×2 (08:21→18:01)
[2019-06-27] MEDS: Amlodipine 5 MG TAB PER TUBE SCH (08:22)
[2019-06-27] MEDS: Ascorbic Acid 500 mg Chewable Tablet PER TUBE SCH (08:22)
[2019-06-27] MEDS: glipiZIDE 5 MG TAB PER TUBE SCH (08:22)
[2019-06-27] MEDS: levETIRAcetam 500 mg/5 ml Oral Solution PER TUBE SCH ×2 (08:24→20:28)
[2019-06-27] MEDS: Lorazepam 0.5 MG TAB PER TUBE PRN ×2 (08:35→15:34)
--- NOTE | 2019-06-27 14:35 | PRG ---
DATE OF SERVICE: 06/27/2019 SUBJECTIVE: Ms. Melissa got her blood transfusion. She states that she feels stronger. She apparently was told that she needs to be discharged soon due to some insurance issue, and she was asking me why, and I advised her that she really needs to talk to the hospital administration and the marketing director assisted living about it. Her family is in the room, and all questions were answered. OBJECTIVE: VITAL SIGNS: She is afebrile, heart rate 69, respirations 18, oxygen saturation 97% on room air, blood pressure was 180/79. CARDIOVASCULAR: S1 and S2 plus. RESPIRATORY: Normal vesicular breath sounds. ABDOMEN: Soft and nontender. Bowel sounds heard in all quadrants. EXTREMITIES: Without cyanosis or clubbing. Some stiffness and early contractures in her hands, which are being treated by OT. LABORATORY DATA: Her hemoglobin is 7.1 after 1 unit of blood transfusion. IMPRESSION: 1. Anemia requiring blood transfusion. 2. History of cerebrovascular accident. 3. Significant deconditioning. 4. Diabetes mellitus, type 2. 5. Hypertension. PLAN: 1. Continue current medications. 2. Monitor for any signs or symptoms of bleeding. 3. Physical therapy. 4. DVT and stress ulcer prophylaxis. 5. Decubitus precautions. 6. Nutritional support. 7. Dr. Pérez Alfaro back [facility]. Job ID: [id number]
[2019-06-27] MEDS: hydrOXYzine 25 MG TAB PER TUBE PRN (15:34)
[2019-06-27] MEDS: Doxazosin 2 MG TAB PER TUBE SCH (20:28)
--- NOTE | 2019-06-27 23:46 | PRG ---
DATE OF SERVICE: 06/22/2019 SUBJECTIVE: The patient is lying in bed with no complaints, has been cooperating minimally with therapy, but is slightly improving. OBJECTIVE: VITAL SIGNS: Shows blood pressure 153/66, pulse 66, temperature 98.7, O2 sats 100% on room air. LUNGS: Clear. CARDIAC: Showed regular rhythm. ABDOMEN: Soft and nontender. SKIN/EXTREMITIES: Display no edema, clubbing, or cyanosis. NEUROLOGICAL: Shows mild confusion, but no focal findings. ASSESSMENT: 1. Pseudomonas urinary tract infection, Proteus urinary tract infection sensitive to Levaquin. 2. Severe deconditioning, minimal improvement. 3. Hypertension, controlled to goal. 4. Type 2 diabetes, controlled to goal. 5. Severe anemia, chronic. We will follow closely. PLAN: 1. PT/OT. 2. Continue Levaquin. 3. Continue Accu-Cheks to monitor and titrate and control diabetes. 4. Continue Levaquin for one week. Job ID: [id number]
--- NOTE | 2019-06-27 23:54 | PRG ---
DATE OF SERVICE: 06/25/2019 SUBJECTIVE: The patient feels well, visiting with granddaughter, states however that she cannot do with therapist, want her to do. Apparently, family has been able to arrange for Medicaid pending and therefore Adult Protective Services has been contacted. OBJECTIVE: LUNGS: Clear. CARDIAC: Shows regular rhythm. ABDOMEN: Soft and nontender. SKIN/EXTREMITIES: Showed no edema, clubbing, or cyanosis. LABORATORY DATA: Shows ferritin level 71, vitamin of 774. Accu-Cheks 105 to 158. Folate 11.4. White count 5100, hemoglobin stable at 7.1, hematocrit 22, retic count 1.0. ASSESSMENT: 1. Stable anemia, most likely of chronic disease. 2. Chronic kidney disease, stage 3. 3. Hypertension, controlled to goal. 4. Proteus, Pseudomonas infection, resolving on levofloxacin. 5. Severe deconditioning, minimal improvement. 6. Type 2 diabetes, controlled to goal. PLAN: 1. Continue PT/OT. 2. Await results of APS. 3. Continue Accu-Cheks. Monitor and titrate and control diabetes. 4. Review labs and therapy notes. Job ID: [id number]
--- NOTE | 2019-06-28 | PRG ---
DATE OF SERVICE: 06/23/2019 SUBJECTIVE: The patient feels well. Has been cooperating with therapy but minimal improvement. Family has been talking to alf about admission. OBJECTIVE: VITAL SIGNS: Shows temperature is 96, pulse 64, respirations 16, O2 sats 100% on room air, and blood pressure 131/59. Accu-Cheks range 105 to 158. ASSESSMENT: 1. Pseudomonas, Proteus urinary tract infection, resolving on Levaquin. 2. Severe deconditioning, minimally improving. 3. Type 2 diabetes, controlled to goal. 4. Severe anemia, appears to be stable, unknown etiology, possible chronic disease. 5. Chronic kidney disease, stage 3. We will repeat labs in the morning. Job ID: [id number]
--- NOTE | 2019-06-28 00:14 | PRG ---
DATE OF SERVICE: 06/24/2019 SUBJECTIVE: The patient states she is doing better, but admits that she is not able to get out of bed to transfer. She is having no complaints otherwise. OBJECTIVE: VITAL SIGNS: Show temperature 97, pulse 68, respirations 18, O2 sats 97% on room air, blood pressure 145/65. LUNGS: Clear. CARDIAC: Showed regular rhythm. No gallops or murmurs. ABDOMEN: Soft and nontender. SKIN/EXTREMITIES: Showed no edema, clubbing, or cyanosis. LABORATORY DATA: Sodium 141, potassium 3.9, chloride 109, bicarb 22, BUN 32, creatinine 1.43, albumin 3.2, globulin 3.7, glucose 104. ASSESSMENT: 1. Severe deconditioning, minimal improvement. 2. Resolving Proteus and Pseudomonas urinary tract infection. 3. Type 2 diabetes, controlled to goal. 4. Chronic kidney disease stage 3, stable. 5. Recurrent anemia of unknown etiology. We will check labs again, ferritin, folate, B12, and retic count to evaluate for hemolytic anemia or any nutritional anemia. Job ID: [id number]
[2019-06-28] MEDS: hydrALAZINE 25 MG TAB PO SCH ×3 (05:10→21:22)
[2019-06-28] MEDS: Levothyroxine Sodium 25 MCG TAB PER TUBE SCH (05:11)
[2019-06-28] MEDS: glipiZIDE 5 MG TAB PER TUBE SCH (08:00)
[2019-06-28] MEDS: Carvedilol 6.25 MG TAB PER TUBE SCH ×2 (08:00→17:27)
[2019-06-28] MEDS: Amlodipine 5 MG TAB PER TUBE SCH (08:01)
[2019-06-28] MEDS: Ascorbic Acid 500 mg Chewable Tablet PER TUBE SCH (08:02)
[2019-06-28] MEDS: Pantoprazole 40 MG GRANULES PACKET PER TUBE SCH (08:02)
[2019-06-28] MEDS: levETIRAcetam 500 mg/5 ml Oral Solution PER TUBE SCH ×2 (08:50→21:22)
[2019-06-28] MEDS: Doxazosin 2 MG TAB PER TUBE SCH (21:22)
[2019-06-29] MEDS: hydrALAZINE 25 MG TAB PO SCH ×3 (05:23→21:39)
[2019-06-29] MEDS: Levothyroxine Sodium 25 MCG TAB PER TUBE SCH (05:24)
[2019-06-29] MEDS: glipiZIDE 5 MG TAB PER TUBE SCH (07:54)
[2019-06-29] MEDS: Carvedilol 6.25 MG TAB PER TUBE SCH ×2 (07:54→17:29)
[2019-06-29] MEDS: Amlodipine 5 MG TAB PER TUBE SCH (07:55)
[2019-06-29] MEDS: Ascorbic Acid 500 mg Chewable Tablet PER TUBE SCH (07:57)
[2019-06-29] MEDS: levETIRAcetam 500 mg/5 ml Oral Solution PER TUBE SCH ×2 (07:57→21:38)
[2019-06-29] MEDS: Pantoprazole 40 MG GRANULES PACKET PER TUBE SCH (07:57)
[2019-06-29] MEDS: Lorazepam 0.5 MG TAB PER TUBE PRN (07:58)
[2019-06-29] MEDS: Doxazosin 2 MG TAB PER TUBE SCH (21:39)
[2019-06-30] MEDS: hydrALAZINE 25 MG TAB PO SCH ×3 (05:08→20:11)
[2019-06-30] MEDS: Levothyroxine Sodium 25 MCG TAB PER TUBE SCH (05:08)
[2019-06-30] MEDS: glipiZIDE 5 MG TAB PER TUBE SCH (08:10)
[2019-06-30] MEDS: Amlodipine 5 MG TAB PER TUBE SCH (08:10)
[2019-06-30] MEDS: Ascorbic Acid 500 mg Chewable Tablet PER TUBE SCH (08:11)
[2019-06-30] MEDS: Pantoprazole 40 MG GRANULES PACKET PER TUBE SCH (08:11)
[2019-06-30] MEDS: levETIRAcetam 500 mg/5 ml Oral Solution PER TUBE SCH ×2 (08:11→20:09)
[2019-06-30] MEDS: Carvedilol 6.25 MG TAB PER TUBE SCH ×2 (08:11→16:45)
[2019-06-30] MEDS: Ondansetron ODT 4 MG TAB PO PRN ×2 (11:02→14:47)
[2019-06-30 12:38] LABS: #Lymphocytes 1.4 thou/uL (1.20-3.40); #Monocytes 0.4 thou/uL (0.11-0.59); #Neutrophils 4.7 thou/uL (1.40-6.50); %Basophils 0.6 % (0.0-1.0); %Eosinophils 0.7 % (0.0-10.0); %Lymphocytes 21.6 % (21.0-51.0); %Neutrophils 71.1 % (42.0-75.0); Hemoglobin 8.3 g/dL (12.0-16.0); Mean Corpuscular HGB CONC 31.5 g/dL (32.0-36.0); Mean Corpuscular Volume 82.5 fL (78.0-98.0); Platelet Count 218 thou/uL (130-400); RBC Distribution Width 14.6 % (11.5-14.5); Red Blood Cell (RBC) Count 3.19 mill/uL (4.20-5.40); White Blood Cell (WBC) Count 6.6 thou/uL (4.8-10.8)
[2019-06-30 12:59] LABS: ALT (SGPT) 8 U/L (8-55); AST (SGOT) 12 U/L (5-34); Albumin 3.4 g/dL (3.4-4.8); Alkaline Phosphatase 44 U/L (40-110); Anion Gap 14 mmol/L (10-20); BUN (Urea Nitrogen) 28 mg/dL (9.8-20.1); Bilirubin, Total 0.2 mg/dL (0.2-1.2); Calc. Creatinine Clearance 58 mL/min (70-130); Calcium 9.7 mg/dL (7.8-10.44); Carbon Dioxide 24 mmol/L (23-31); Chloride 108 mmol/L (98-107); Estimated GFR-MDRD 50; Globulin 4.1 g/dL (2.4-3.5); Glucose 116 mg/dL (83-110); Potassium 3.6 mmol/L (3.5-5.1); Protein, Total 7.5 g/dL (6.0-8.3); Sodium 142 mmol/L (136-145)
[2019-06-30] MEDS: Lorazepam 0.5 MG TAB PER TUBE PRN ×2 (14:36→20:09)
[2019-06-30] MEDS: Doxazosin 2 MG TAB PER TUBE SCH (20:09)
[2019-06-30] MEDS: hydrOXYzine 25 MG TAB PER TUBE PRN (20:10)
[2019-07-01] MEDS: hydrALAZINE 25 MG TAB PO SCH ×3 (06:06→20:39)
[2019-07-01] MEDS: Levothyroxine Sodium 25 MCG TAB PER TUBE SCH (06:06)
[2019-07-01] MEDS: Carvedilol 6.25 MG TAB PER TUBE SCH ×2 (08:29→18:05)
[2019-07-01] MEDS: levETIRAcetam 500 mg/5 ml Oral Solution PER TUBE SCH ×2 (08:29→20:33)
[2019-07-01] MEDS: Lorazepam 0.5 MG TAB PER TUBE PRN ×2 (08:29→20:40)
[2019-07-01] MEDS: Ascorbic Acid 500 mg Chewable Tablet PER TUBE SCH (08:29)
[2019-07-01] MEDS: Pantoprazole 40 MG GRANULES PACKET PER TUBE SCH (08:29)
[2019-07-01] MEDS: Ondansetron ODT 4 MG TAB PO PRN (08:29)
[2019-07-01] MEDS: hydrOXYzine 25 MG TAB PER TUBE PRN ×2 (08:29→20:40)
[2019-07-01] MEDS: glipiZIDE 5 MG TAB PER TUBE SCH (08:29)
[2019-07-01] MEDS: Amlodipine 5 MG TAB PER TUBE SCH (08:29)
[2019-07-01] MEDS: cloNIDine 0.1mg/24 Hour PATCH TD SCH (20:33)
[2019-07-01] MEDS: Doxazosin 2 MG TAB PER TUBE SCH (20:33)
[2019-07-02] MEDS: Ondansetron ODT 4 MG TAB PO PRN ×2 (05:38→09:44)
[2019-07-02] MEDS: hydrALAZINE 25 MG TAB PO SCH ×3 (05:38→20:50)
[2019-07-02] MEDS: Levothyroxine Sodium 25 MCG TAB PER TUBE SCH (05:38)
[2019-07-02] MEDS: Lorazepam 0.5 MG TAB PER TUBE PRN ×3 (05:38→20:51)
[2019-07-02] MEDS: Carvedilol 6.25 MG TAB PER TUBE SCH ×2 (08:21→17:48)
[2019-07-02] MEDS: Amlodipine 5 MG TAB PER TUBE SCH (08:22)
[2019-07-02] MEDS: Ascorbic Acid 500 mg Chewable Tablet PER TUBE SCH (08:22)
[2019-07-02] MEDS: Pantoprazole 40 MG GRANULES PACKET PER TUBE SCH (08:22)
[2019-07-02] MEDS: glipiZIDE 5 MG TAB PER TUBE SCH (08:22)
[2019-07-02] MEDS: levETIRAcetam 500 mg/5 ml Oral Solution PER TUBE SCH ×2 (08:22→20:50)
[2019-07-02 15:10] LABS: Methylmalonic Acid 282 nmol/L (0-378)
[2019-07-02] MEDS: Doxazosin 2 MG TAB PER TUBE SCH (20:50)
[2019-07-02] MEDS: hydrOXYzine 25 MG TAB PER TUBE PRN (20:51)
[2019-07-03] MEDS: Lorazepam 0.5 MG TAB PER TUBE PRN ×2 (02:10→08:34)
[2019-07-03] MEDS: Levothyroxine Sodium 25 MCG TAB PER TUBE SCH (05:42)
[2019-07-03] MEDS: hydrALAZINE 25 MG TAB PO SCH ×3 (05:42→21:05)
[2019-07-03] MEDS: glipiZIDE 5 MG TAB PER TUBE SCH (08:32)
[2019-07-03] MEDS: Carvedilol 6.25 MG TAB PER TUBE SCH ×2 (08:32→17:04)
[2019-07-03] MEDS: Amlodipine 5 MG TAB PER TUBE SCH (08:33)
[2019-07-03] MEDS: Ascorbic Acid 500 mg Chewable Tablet PER TUBE SCH (08:33)
[2019-07-03] MEDS: Pantoprazole 40 MG GRANULES PACKET PER TUBE SCH (08:33)
[2019-07-03] MEDS: levETIRAcetam 500 mg/5 ml Oral Solution PER TUBE SCH ×2 (08:33→21:04)
[2019-07-03] MEDS: cloNIDine 0.3mg/24 Hour PATCH TD SCH (21:04)
[2019-07-03] MEDS: Doxazosin 2 MG TAB PER TUBE SCH (21:04)
[2019-07-04] MEDS: hydrOXYzine 25 MG TAB PER TUBE PRN (03:09)
[2019-07-04] MEDS: Levothyroxine Sodium 25 MCG TAB PER TUBE SCH (05:33)
[2019-07-04] MEDS: hydrALAZINE 25 MG TAB PO SCH ×3 (05:33→21:27)
--- NOTE | 2019-07-04 07:52 | PRG ---
DATE OF SERVICE: 06/29/2019 SUBJECTIVE: The patient lying in bed, resting, with no complaints. Nurses have no concerns. She is attempting PT with minimal improvement. OBJECTIVE: VITAL SIGNS: Temperature is 99, pulse 75, respirations 16, O2 saturations 96% on room air, blood pressure is 171/67. Accu-Cheks range 88 to 123. LUNGS: Clear. CARDIAC: Shows regular rhythm. ABDOMEN: Soft, nontender. ASSESSMENT: 1. Resolved Proteus, Pseudomonas urinary tract infection. 2. Severe deconditioning with minimal improvement. 3. Hypertension, controlled to goal. 4. Type 2 diabetes, controlled to goal. 5. Chronic kidney disease, stage 3, stable. PLAN: 1. Continue to attempt PT/OT. 2. Continue case management, Adult Protective Services attempt to obtain outpatient facility as the patient is unable to maintain ADLs. Job ID: [id number]
[2019-07-04] MEDS: Carvedilol 25 MG TAB PER TUBE SCH ×2 (07:57→16:45)
[2019-07-04] MEDS: Ascorbic Acid 500 mg Chewable Tablet PER TUBE SCH (07:57)
[2019-07-04] MEDS: glipiZIDE 5 MG TAB PER TUBE SCH (07:57)
[2019-07-04] MEDS: Amlodipine 5 MG TAB PER TUBE SCH (07:57)
[2019-07-04] MEDS: levETIRAcetam 500 mg/5 ml Oral Solution PER TUBE SCH ×2 (07:58→21:27)
[2019-07-04] MEDS: Pantoprazole 40 MG GRANULES PACKET PER TUBE SCH (07:58)
[2019-07-04] MEDS: Lorazepam 0.5 MG TAB PER TUBE PRN (07:59)
--- NOTE | 2019-07-04 08:23 | PRG ---
DATE OF SERVICE: 06/28/2019 SUBJECTIVE: The patient is lying in the bed, visiting with her granddaughter. She states she is working with therapy and is attempting to arrange finances for extended care. OBJECTIVE: VITAL SIGNS: Temperature is 98.5, pulse 67, respirations 18, O2 saturations 98% on room air, and blood pressure 147/84. LUNGS: Clear. CARDIAC: Shows regular rhythm. ABDOMEN: Soft and nontender. LABORATORY DATA: Laboratories yesterday showed stable but low hemoglobin of 7.1, hematocrit of 22, and white count of 5100. Sodium is 140, potassium 3.8, chloride 109, bicarb 22, BUN 30, and creatinine 1.39. Accu-Cheks have remained stable at 103 to 139. ASSESSMENT: A 73-year-old black female with history of, 1. Severe deconditioning cooperating with therapy by making minimal improvement. 2. Chronic kidney disease, stage 3, stable. 3. Hypertension, controlled to goal. 4. Proteus and Pseudomonas urinary tract infection, resolving. 5. Type 2 diabetes, controlled to goal. PLAN: 1. Await results of an Adult Protective Services evaluation for outpatient care. 2. Continue to attempt PT and OT. 3. Continue to monitor and titrate and control diabetes with Accu-Cheks. 4. Continue to monitor vital signs closely. Job ID: [id number]
--- NOTE | 2019-07-04 08:27 | PRG ---
DATE OF SERVICE: 06/30/2019 SUBJECTIVE: The patient is lying in the bed, resting, sleeping, no complaints. Nurses have no concerns. No family in the room. OBJECTIVE: VITAL SIGNS: Shows her temperature is 97.6, pulse 75, respirations 18, O2 saturations 97% on room air, and blood pressure 137/59. LUNGS: Clear. CARDIAC: Shows regular rhythm. ABDOMEN: Soft and nontender. ASSESSMENT: 1. Persistent deconditioning with inability to maintain ADLs, attempting to cooperate with therapy but improving slightly. 2. Stable chronic kidney disease, stage 3. 3. Hypertension, controlled to goal. 4. Resolved urinary tract infection. 5. Stable type 2 diabetes. PLAN: 1. Continue to attempt PT and OT. 2. Continue to await Case Management Adult Protective Services decision on placement. 3. Continue Accu-Cheks to monitor and titrate and control diabetes. 4. Continue to monitor vital signs closely. Job ID: [id number]
--- NOTE | 2019-07-04 08:28 | PRG ---
DATE OF SERVICE: 07/01/2019 SUBJECTIVE: The patient is lying in the bed, awake and alert. No complaints. Cheerful at this time. LABORATORY DATA: Show white count 6600, hematocrit 26, hemoglobin 8.3. Accu-Cheks ranged from 95 to 113. Sodium 142, potassium 3.6, chloride 108, bicarb 24, BUN 28, creatinine 1.28, glucose 116, calcium 9.7, total bilirubin 0.2, AST 12, ALT 8, globulin 4.1. OBJECTIVE: LUNGS: Clear. CARDIAC: Showed regular rhythm. ABDOMEN: Soft and nontender. VITAL SIGNS: Show a temperature of 97, pulse 74, respirations 18, O2 sats 97% on room air, blood pressure 140/68. ASSESSMENT: 1. Stable deconditioning. 2. Type 2 diabetes, controlled to goal. 3. Hypertension, occasional elevation, but controlled to goal. 4. Resolved urinary tract infection. PLAN: 1. Continue to attempt PT/OT. 2. Continue Accu-Cheks to monitor and titrate and control diabetes. 3. Continue to monitor vital signs and control blood pressure appropriately. 4. Discussed discharge planning with Case Management. Job ID: [id number]
--- NOTE | 2019-07-04 08:29 | PRG ---
DATE OF SERVICE: 07/02/2019 SUBJECTIVE: The patient is in the room, visiting with nurses. She has no complaints. Nurses have no concerns. Case Management has no new information. OBJECTIVE: VITAL SIGNS: Show temperature is 96, pulse 70, respirations 18, O2 sat is 98% on room air, and blood pressure 140/76. LUNGS: Clear. CARDIAC: Shows regular rate and rhythm. ABDOMEN: Soft and nontender. SKIN/EXTREMITIES: Display no edema, clubbing, or cyanosis. NEUROLOGIC: Intact. ASSESSMENT: 1. Persistent deconditioning with inability to maintain ADLs. 2. Stable hypertension, controlled to goal. 3. Type 2 diabetes, controlled to goal. 4. Resolved urinary tract infection. PLAN: 1. Continue to attempt PT/OT. 2. Await Case Management decision on placement. 3. Review vital signs with therapy. 4. Continue Accu-Cheks to monitor and titrate and control diabetes. Job ID: [id number]
--- NOTE | 2019-07-04 08:54 | PRG ---
DATE OF SERVICE: 07/03/2019 SUBJECTIVE: The patient does well, resting in bed with no complaints. She is not working with therapy today. OBJECTIVE: VITAL SIGNS: Shows temperature is 96, pulse 70, respirations 18, O2 saturations 96% on room air, and blood pressure 147/68. LUNGS: Clear. CARDIAC: Shows regular rhythm. ABDOMEN: Soft and nontender. SKIN AND EXTREMITIES: Show no edema. ASSESSMENT: 1. Resolved urinary tract infection. 2. Stable hypertension. 3. Stable diabetes. 4. Persistent deconditioning. PLAN: 1. Continue to attempt PT and OT. 2. Continue Accu-Cheks to monitor and titrate and control diabetes. 3. Continue to monitor vital signs closely with therapy. 4. Continue to stress oral hydration and nutritional intake. Job ID: [id number]
[2019-07-04] MEDS: Doxazosin 2 MG TAB PER TUBE SCH (21:27)
[2019-07-05] MEDS: hydrALAZINE 25 MG TAB PO SCH ×3 (05:30→20:43)
[2019-07-05] MEDS: Levothyroxine Sodium 25 MCG TAB PER TUBE SCH (05:30)
[2019-07-05] MEDS: Pantoprazole 40 MG GRANULES PACKET PER TUBE SCH (08:45)
[2019-07-05] MEDS: Amlodipine 5 MG TAB PER TUBE SCH (08:45)
[2019-07-05] MEDS: glipiZIDE 5 MG TAB PER TUBE SCH (08:45)
[2019-07-05] MEDS: Carvedilol 25 MG TAB PER TUBE SCH ×2 (08:45→17:00)
[2019-07-05] MEDS: levETIRAcetam 500 mg/5 ml Oral Solution PER TUBE SCH ×2 (08:45→20:43)
[2019-07-05] MEDS: Ascorbic Acid 500 mg Chewable Tablet PER TUBE SCH (08:46)
[2019-07-05] MEDS: Lorazepam 0.5 MG TAB PER TUBE PRN (17:00)
[2019-07-05] MEDS: hydrOXYzine 25 MG TAB PER TUBE PRN (20:43)
[2019-07-05] MEDS: Doxazosin 2 MG TAB PER TUBE SCH (20:43)
[2019-07-06] MEDS: Lorazepam 0.5 MG TAB PER TUBE PRN ×3 (02:31→21:07)
[2019-07-06] MEDS: hydrALAZINE 25 MG TAB PO SCH ×3 (06:11→21:07)
[2019-07-06] MEDS: Levothyroxine Sodium 25 MCG TAB PER TUBE SCH (06:11)
[2019-07-06] MEDS: Carvedilol 25 MG TAB PER TUBE SCH ×2 (08:28→17:08)
[2019-07-06] MEDS: Amlodipine 5 MG TAB PER TUBE SCH (08:28)
[2019-07-06] MEDS: glipiZIDE 5 MG TAB PER TUBE SCH (08:28)
[2019-07-06] MEDS: Pantoprazole 40 MG GRANULES PACKET PER TUBE SCH (08:29)
[2019-07-06] MEDS: Ascorbic Acid 500 mg Chewable Tablet PER TUBE SCH (08:29)
[2019-07-06] MEDS: levETIRAcetam 500 mg/5 ml Oral Solution PER TUBE SCH ×2 (08:29→21:07)
[2019-07-06] MEDS: Ondansetron ODT 4 MG TAB PO PRN (13:13)
--- NOTE | 2019-07-06 13:50 | PRG ---
DATE OF SERVICE: 07/06/2019 SUBJECTIVE: Ms. Kelley is doing the same. Denies any complaints. Apparently having episodes of agitation. No fever or chills. No chest pain or shortness of breath. OBJECTIVE: VITAL SIGNS: She is afebrile. Heart rate 63, respirations 18, oxygen saturation 97% on room air, and blood pressure 141/64. CARDIOVASCULAR SYSTEM: S1 and S2 plus. RESPIRATORY SYSTEM: Normal vesicular breath sounds. ABDOMEN: Soft, nontender. Bowel sounds heard in all quadrants. EXTREMITIES: Without cyanosis or clubbing. IMPRESSION: 1. History of CVA. 2. Diabetes mellitus, type 2. 3. Hypertension. 4. Deconditioning. PLAN: 1. Continue current medications. 2. Nutritional support. 3. Heart-healthy diet. 4. Monitor for any signs or symptoms of bleeding. 5. Physical therapy. 6. Placement. Job ID: [id number]
[2019-07-06] MEDS ORDERED: Milk Of Magnesia 30 ML UDCUP PO PRN (16:07)
[2019-07-06] MEDS: Doxazosin 2 MG TAB PER TUBE SCH (21:07)
[2019-07-06] MEDS: hydrOXYzine 25 MG TAB PER TUBE PRN (21:07)
[2019-07-07] MEDS: hydrALAZINE 25 MG TAB PO SCH ×3 (05:50→19:53)
[2019-07-07] MEDS: Levothyroxine Sodium 25 MCG TAB PER TUBE SCH (05:50)
[2019-07-07] MEDS: Lorazepam 0.5 MG TAB PER TUBE PRN ×2 (05:51→19:53)
[2019-07-07] MEDS: glipiZIDE 5 MG TAB PER TUBE SCH (08:03)
[2019-07-07] MEDS: Carvedilol 25 MG TAB PER TUBE SCH ×2 (08:04→16:36)
[2019-07-07] MEDS: levETIRAcetam 500 mg/5 ml Oral Solution PER TUBE SCH ×2 (08:05→19:53)
[2019-07-07] MEDS: Pantoprazole 40 MG GRANULES PACKET PER TUBE SCH (08:05)
[2019-07-07] MEDS: Amlodipine 5 MG TAB PER TUBE SCH (08:05)
[2019-07-07] MEDS: Ascorbic Acid 500 mg Chewable Tablet PER TUBE SCH (08:05)
--- NOTE | 2019-07-07 16:39 | PRG ---
DATE OF SERVICE: 07/07/2019 SUBJECTIVE: Ms. Kelley is sleeping, but arousable. Doing the same. Discussed with nursing. OBJECTIVE: VITAL SIGNS: She is afebrile. Heart rate 60, respirations 18, oxygen saturation 96% on room air, blood pressure 144/65. CARDIOVASCULAR SYSTEM: S1 and S2 plus. RESPIRATORY SYSTEM: Normal vesicular breath sounds. ABDOMEN: Soft, nontender. Bowel sounds heard in all quadrants. EXTREMITIES: Without cyanosis or clubbing. CENTRAL NERVOUS SYSTEM: Awake and responsive, generalized weakness. LABORATORY DATA: Blood sugars are 111, 103, 116, 110, and 109. IMPRESSION: 1. Diabetes mellitus, type 2. 2. Hypertension. 3. Deconditioning. 4. History of cerebrovascular accident. PLAN: 1. Continue current medications. 2. 1800-calorie heart healthy ADA diet. 3. Accu-Cheks with sliding scale coverage. 4. Monitor blood pressure and adjust medications as needed. 5. Physical therapy. 6. DVT and stress ulcer prophylaxis. 7. Decubitus precautions. 8. Routine laboratory values. Job ID: [id number]
[2019-07-07] MEDS: Doxazosin 2 MG TAB PER TUBE SCH (19:52)
[2019-07-07] MEDS: hydrOXYzine 25 MG TAB PER TUBE PRN (19:53)
[2019-07-08] MEDS: Levothyroxine Sodium 25 MCG TAB PER TUBE SCH (05:31)
[2019-07-08] MEDS: Lorazepam 0.5 MG TAB PER TUBE PRN (05:31)
[2019-07-08] MEDS: hydrALAZINE 25 MG TAB PO SCH ×3 (05:31→20:29)
[2019-07-08] MEDS: glipiZIDE 5 MG TAB PER TUBE SCH (08:06)
[2019-07-08] MEDS: Amlodipine 5 MG TAB PER TUBE SCH (08:06)
[2019-07-08] MEDS: Carvedilol 25 MG TAB PER TUBE SCH ×2 (08:06→17:01)
[2019-07-08] MEDS: levETIRAcetam 500 mg/5 ml Oral Solution PER TUBE SCH ×2 (08:07→20:28)
[2019-07-08] MEDS: Ascorbic Acid 500 mg Chewable Tablet PER TUBE SCH (08:07)
[2019-07-08] MEDS: Pantoprazole 40 MG GRANULES PACKET PER TUBE SCH (08:07)
--- NOTE | 2019-07-08 18:33 | PRG ---
DATE OF SERVICE: 07/08/2019 SUBJECTIVE: The patient is lying in bed and answers questions appropriately, but states that she wants to go to the senior living and understands she cannot stay in the hospital, but Speech states that she is not cognitively aware to sign herself in. OBJECTIVE: GENERAL: APS states that she cannot sign herself in. LUNGS: Clear. CARDIAC: Showed regular rhythm. ABDOMEN: Soft and nontender. NEUROLOGIC: Shows no focal finding. LABORATORY DATA: Accu-Cheks ranged from 119 to 163. ASSESSMENT: 1. Dementia with behavioral disturbance. 2. Type 2 diabetes, controlled to goal. 3. Labile hypertension with increased blood pressure in the afternoon. 4. Resolved urinary tract infection. PLAN: 1. Increase amlodipine to 10 mg every morning. 2. Await APS decision. 3. Continue Accu-Cheks to monitor and titrate and control diabetes. Job ID: [id number]
[2019-07-08] MEDS: Doxazosin 2 MG TAB PER TUBE SCH (20:28)
[2019-07-09] MEDS: Levothyroxine Sodium 25 MCG TAB PER TUBE SCH (05:11)
[2019-07-09] MEDS: hydrALAZINE 25 MG TAB PO SCH ×3 (05:11→20:34)
[2019-07-09] MEDS: Pantoprazole 40 MG GRANULES PACKET PER TUBE SCH (08:26)
[2019-07-09] MEDS: levETIRAcetam 500 mg/5 ml Oral Solution PER TUBE SCH ×2 (08:26→20:33)
[2019-07-09] MEDS: Ascorbic Acid 500 mg Chewable Tablet PER TUBE SCH (08:26)
[2019-07-09] MEDS: glipiZIDE 5 MG TAB PER TUBE SCH (08:26)
[2019-07-09] MEDS: Carvedilol 25 MG TAB PER TUBE SCH ×2 (08:27→16:56)
[2019-07-09] MEDS: Amlodipine 5 MG TAB PER TUBE SCH (08:28)
--- NOTE | 2019-07-09 11:20 | PRG ---
DATE OF SERVICE: 07/04/2019 SUBJECTIVE: The patient lying in bed, in no distress, but is unable to cooperate with Therapy and has been felt by Speech Therapy to be unable to make decisions. However, the family has refused to sign her papers, and APS has seen the patient and has stated the patient needs to be in the correction. OBJECTIVE: VITAL SIGNS: Her blood pressure is 197/82, respirations 18, pulse 64, temperature 98.7. LUNGS: Clear. CARDIAC: Showed regular rhythm. ABDOMEN: Soft and nontender. SKIN AND EXTREMITIES: Show no edema, clubbing, or cyanosis. NEUROLOGICAL: Shows no focal findings with diffuse generalized weakness. ASSESSMENT: 1. Persistent deconditioning. 2. Persistent dementia with behavioral disturbance. 3. Labile hypertension. 4. Resolved urinary tract infection. PLAN: 1. Discuss discharge planning with adult protective services. 2. Continue Accu-Cheks to monitor and titrate and control diabetes. 3. Continue to monitor vital signs and possibly titrate blood pressure medications. Job ID: [id number]
--- NOTE | 2019-07-09 11:21 | PRG ---
DATE OF SERVICE: 06/05/2019 SUBJECTIVE: The patient is lying in the bed, resting. No complaints. She has not seen the family today. Nurses have no concerns except for occasional agitation, hallucination. OBJECTIVE: VITAL SIGNS: Blood pressure 140/64 in the morning, up to170/74 in the afternoon; pulse 63 to 68; temperature is 98; O2 sats 97% on room air. LUNGS: Clear. CARDIAC: Regular rhythm. ABDOMEN: Soft and nontender. ASSESSMENT: 1. Persistent dementia with behavioral disturbance, cognitive deficits. 2. Labile hypertension. 3. Type-2 diabetes, controlled to goal with Accu-Cheks ranging from 109 to 119. 4. Resolved urinary tract infection. PLAN: 1. Possibly increase amlodipine in this week if no improvement in blood pressure. 2. Continue Accu-Cheks to monitor and titrate and control diabetes. 3. Await APS decision. Job ID: [id number]
[2019-07-09] MEDS: Doxazosin 2 MG TAB PER TUBE SCH (20:33)
[2019-07-10] MEDS: hydrALAZINE 25 MG TAB PO SCH ×3 (05:21→20:32)
[2019-07-10] MEDS: Levothyroxine Sodium 25 MCG TAB PER TUBE SCH (05:21)
[2019-07-10] MEDS: Ascorbic Acid 500 mg Chewable Tablet PER TUBE SCH (08:38)
[2019-07-10] MEDS: Amlodipine 5 MG TAB PER TUBE SCH (08:38)
[2019-07-10] MEDS: Carvedilol 25 MG TAB PER TUBE SCH ×2 (08:39→17:47)
[2019-07-10] MEDS: glipiZIDE 5 MG TAB PER TUBE SCH (08:39)
[2019-07-10] MEDS: Pantoprazole 40 MG GRANULES PACKET PER TUBE SCH (08:39)
[2019-07-10] MEDS: levETIRAcetam 500 mg/5 ml Oral Solution PER TUBE SCH ×2 (08:43→20:31)
[2019-07-10] MEDS: cloNIDine 0.3mg/24 Hour PATCH TD SCH (17:48)
[2019-07-10] MEDS: Doxazosin 2 MG TAB PER TUBE SCH (20:31)
[2019-07-11] MEDS: hydrALAZINE 25 MG TAB PO SCH ×3 (05:34→21:10)
[2019-07-11] MEDS: Levothyroxine Sodium 25 MCG TAB PER TUBE SCH (05:34)
[2019-07-11] MEDS: Amlodipine 5 MG TAB PER TUBE SCH (08:22)
[2019-07-11] MEDS: Pantoprazole 40 MG GRANULES PACKET PER TUBE SCH (08:22)
[2019-07-11] MEDS: levETIRAcetam 500 mg/5 ml Oral Solution PER TUBE SCH ×2 (08:22→21:10)
[2019-07-11] MEDS: Ascorbic Acid 500 mg Chewable Tablet PER TUBE SCH (08:23)
[2019-07-11] MEDS: glipiZIDE 5 MG TAB PER TUBE SCH (08:23)
[2019-07-11] MEDS: Carvedilol 25 MG TAB PER TUBE SCH ×2 (08:23→16:14)
--- NOTE | 2019-07-11 15:14 | PRG ---
DATE OF SERVICE: 07/11/2019 SUBJECTIVE: Ms. Kelley is doing the same. Denies any complaints. No family at bedside. Discussed with nursing. Her blood pressure is fluctuating off and on, and there are really no aggravating or relieving factors. We will let Dr. Alfaro know and have him monitor her closely. OBJECTIVE: VITAL SIGNS: She is afebrile, heart rate 60, respirations 20, oxygen saturation 94% on room air, blood pressure 144/64. CARDIOVASCULAR: S1 and S2 plus. RESPIRATORY: Normal vesicular breath sounds. ABDOMEN: Soft, obese, and nontender. Bowel sounds heard in all quadrants. EXTREMITIES: Without cyanosis or clubbing. IMPRESSION: 1. Diabetes mellitus, type 2. 2. Hypertension. 3. History of cerebrovascular accident. 4. Deconditioning. 5. History of anemia, requiring blood transfusion. PLAN: 1. Continue current medications. 2. Heart-healthy diet. 3. DVT prophylaxis. 4. Decubitus precautions. 5. Stress ulcer prophylaxis. 6. Routine laboratory values. 7. Physical therapy. 8. Discharge planning. 9. Dr. Alfaro [facility]. Job ID: [id number]
[2019-07-11] MEDS: Doxazosin 2 MG TAB PER TUBE SCH (21:10)
[2019-07-12] MEDS: Levothyroxine Sodium 25 MCG TAB PER TUBE SCH (05:41)
[2019-07-12] MEDS: hydrALAZINE 25 MG TAB PO SCH ×3 (05:41→21:08)
[2019-07-12] MEDS: glipiZIDE 5 MG TAB PER TUBE SCH (08:06)
[2019-07-12] MEDS: Ascorbic Acid 500 mg Chewable Tablet PER TUBE SCH (08:06)
[2019-07-12] MEDS: Amlodipine 5 MG TAB PER TUBE SCH (08:06)
[2019-07-12] MEDS: Carvedilol 25 MG TAB PER TUBE SCH ×2 (08:06→17:48)
[2019-07-12] MEDS: levETIRAcetam 500 mg/5 ml Oral Solution PER TUBE SCH ×2 (08:06→21:00)
[2019-07-12] MEDS: Pantoprazole 40 MG GRANULES PACKET PER TUBE SCH (08:06)
[2019-07-12] MEDS: Ondansetron ODT 4 MG TAB PO PRN (09:56)
[2019-07-12] MEDS: Lorazepam 0.5 MG TAB PER TUBE PRN (11:10)
[2019-07-12] MEDS: Doxazosin 2 MG TAB PER TUBE SCH (21:00)
[2019-07-13] MEDS: hydrALAZINE 25 MG TAB PO SCH ×3 (05:09→21:50)
[2019-07-13] MEDS: Levothyroxine Sodium 25 MCG TAB PER TUBE SCH (05:09)
[2019-07-13] MEDS: Carvedilol 25 MG TAB PER TUBE SCH ×2 (08:17→17:29)
[2019-07-13] MEDS: glipiZIDE 5 MG TAB PER TUBE SCH (08:17)
[2019-07-13] MEDS: Amlodipine 5 MG TAB PER TUBE SCH (08:17)
[2019-07-13] MEDS: Ondansetron ODT 4 MG TAB PO PRN (08:18)
[2019-07-13] MEDS: Lorazepam 0.5 MG TAB PER TUBE PRN (08:18)
[2019-07-13] MEDS: Ascorbic Acid 500 mg Chewable Tablet PER TUBE SCH (08:18)
[2019-07-13] MEDS: Pantoprazole 40 MG GRANULES PACKET PER TUBE SCH (08:19)
[2019-07-13] MEDS: levETIRAcetam 500 mg/5 ml Oral Solution PER TUBE SCH ×2 (08:19→21:50)
[2019-07-13] MEDS: Doxazosin 2 MG TAB PER TUBE SCH (21:50)
[2019-07-14] MEDS: hydrALAZINE 25 MG TAB PO SCH ×3 (05:09→20:48)
[2019-07-14] MEDS: Levothyroxine Sodium 25 MCG TAB PER TUBE SCH (05:09)
--- NOTE | 2019-07-14 07:45 | PRG ---
DATE OF SERVICE: 07/12/2019 SUBJECTIVE: The patient feels well, lying in the bed, but still unable to maintain ADLs and requiring 1 to 2 person assist. Adult Protective Services have obtained papers and will bring to [facility] for admission hopefully tomorrow. OBJECTIVE: VITAL SIGNS: Temperature 97.8, pulse 65, respirations 18, O2 sats 95% on room air, and blood pressure is 202/68. LUNGS: Clear. CARDIAC: Regular rhythm. ABDOMEN: Soft, nontender. SKIN AND EXTREMITIES: No edema. NEUROLOGICAL: Diffuse generalized weakness with . ASSESSMENT: 1. Uncontrolled hypertension, fluctuating despite multiple medications. 2. Uncontrolled diabetes, improved to goal in the hospital. 3. Recent cardiac arrest, anoxic brain damage with inability to maintain ADLs with Adult Protective Services arranging for admission in [facility]. PLAN: Continue assistance with ADLs. Continue to titrate and control diabetes with Accu-Cheks. Continue to monitor blood pressure, which is fluctuating in the hospital. Job ID: [id number]
--- NOTE | 2019-07-14 07:47 | PRG ---
DATE OF SERVICE: 07/13/2019 SUBJECTIVE: The patient feels well, lying in bed with no complaints at rest, but unable to maintain ADLs. Denies headache, dizziness, shortness of breath or chest pain. OBJECTIVE: VITAL SIGNS: Blood pressure is 184/75, temperature is 98, pulse 66, respirations 18, O2 sats 95% on room air. LUNGS: Clear. CARDIAC: Regular rhythm. ABDOMEN: Soft, nontender. NEUROLOGICAL: No focal findings. ASSESSMENT: 1. Uncontrolled hypertension, on multiple medications including maximum dose hydralazine, carvedilol, clonidine patch. 2. Inability to maintain ADLs. Awaiting APS transfer. 3. Diabetes, controlled to goal in the hospital with Accu-Cheks ranging from 107 to 133. PLAN: Add minoxidil 5 mg every morning and 0.1 of clonidine at night in addition to Catapres patch, hydralazine, carvedilol. Job ID: [id number]
[2019-07-14] MEDS: glipiZIDE 5 MG TAB PER TUBE SCH (08:24)
[2019-07-14] MEDS: Carvedilol 25 MG TAB PER TUBE SCH ×2 (08:54→16:09)
[2019-07-14] MEDS: Amlodipine 5 MG TAB PER TUBE SCH (09:16)
[2019-07-14] MEDS: Ascorbic Acid 500 mg Chewable Tablet PER TUBE SCH (09:17)
[2019-07-14] MEDS: Minoxidil 2.5 MG TAB PO SCH (09:17)
[2019-07-14] MEDS: levETIRAcetam 500 mg/5 ml Oral Solution PER TUBE SCH ×2 (09:21→20:47)
[2019-07-14] MEDS: Pantoprazole 40 MG GRANULES PACKET PER TUBE SCH (09:26)
[2019-07-14] MEDS: Ondansetron ODT 4 MG TAB PO PRN (17:48)
--- NOTE | 2019-07-14 20:16 | PRG ---
DATE OF SERVICE: 07/14/2019 SUBJECTIVE: The patient is lying in the bed, resting with no complaints at rest, but still unable to maintain ADLs, severe weakness. She is eating somewhat better. She is having no fever, chills, cough, shortness of breath, or abdominal pain. OBJECTIVE: VITAL SIGNS: Blood pressure is 136/58, pulse 63, temperature is 98, respirations 16. LUNGS: Clear. CARDIAC: Regular rhythm. ABDOMEN: Soft and nontender. ASSESSMENT: 1. Severe deconditioning, status post distant cardiac arrest with inability to maintain activities of daily living. 2. Possible anoxic encephalopathy, status post cardiac arrest. 3. Type 2 diabetes, controlled to goal. 4. Hypertension, controlled to goal. PLAN: 1. Continue PT/OT longterm. 2. Continue to monitor vital signs closely. Continue multiple medications, blood pressure. 3. Repeat CBC and comprehensive metabolic profile in a.m. Job ID: [id number]
[2019-07-14] MEDS: cloNIDine 0.1 MG TAB PO SCH (20:46)
[2019-07-14] MEDS: Doxazosin 2 MG TAB PER TUBE SCH (20:46)
[2019-07-14] MEDS: Lorazepam 0.5 MG TAB PER TUBE PRN (20:47)
[2019-07-14] MEDS: hydrOXYzine 25 MG TAB PER TUBE PRN (20:47)
[2019-07-15] MEDS: hydrALAZINE 25 MG TAB PO SCH ×3 (05:25→20:31)
[2019-07-15] MEDS: Levothyroxine Sodium 25 MCG TAB PER TUBE SCH (05:26)
[2019-07-15 05:46] LABS: #Lymphocytes 2.2 thou/uL (1.20-3.40); #Monocytes 0.5 thou/uL (0.11-0.59); #Neutrophils 3.7 thou/uL (1.40-6.50); %Basophils 0.7 % (0.0-1.0); %Eosinophils 0.6 % (0.0-10.0); %Lymphocytes 33.9 % (21.0-51.0); %Monocytes 7.7 % (0.0-10.0); %Neutrophils 57.1 % (42.0-75.0); Hemoglobin 7.9 g/dL (12.0-16.0); Mean Corpuscular HGB CONC 32.2 g/dL (32.0-36.0); Mean Corpuscular Hemoglobin 26.5 pg (27.0-31.0); Mean Corpuscular Volume 82.2 fL (78.0-98.0); Mean Platelet Volume 9.2 fL (7.4-10.4); Platelet Count 161 thou/uL (130-400); RBC Distribution Width 13.7 % (11.5-14.5); Red Blood Cell (RBC) Count 2.98 mill/uL (4.20-5.40); White Blood Cell (WBC) Count 6.5 thou/uL (4.8-10.8)
[2019-07-15 06:09] LABS: ALT (SGPT) 7 U/L (8-55); AST (SGOT) 11 U/L (5-34); Alkaline Phosphatase 44 U/L (40-110); Anion Gap 13 mmol/L (10-20); BUN (Urea Nitrogen) 27 mg/dL (9.8-20.1); Bilirubin, Total 0.3 mg/dL (0.2-1.2); Calc. Creatinine Clearance 49 mL/min (70-130); Calcium 8.1 mg/dL (7.8-10.44); Carbon Dioxide 29 mmol/L (23-31); Chloride 100 mmol/L (98-107); Estimated GFR-MDRD 40; Globulin 3.4 g/dL (2.4-3.5); Glucose 102 mg/dL (83-110); Protein, Total 6.4 g/dL (6.0-8.3); Sodium 140 mmol/L (136-145)
[2019-07-15 06:41] LABS: Potassium 2.4 mmol/L (3.5-5.1)
[2019-07-15] MEDS ORDERED: Potassium Chloride 20 MEQ TAB PO SCH (07:00)
--- NOTE | 2019-07-15 07:57 | RAD ---
Chest AP view INDICATION: Low O2 saturations COMPARISON: Prior exam dated April 14, 2019 FINDINGS: Lungs:The lungs are clear Cardiac silhouette:There is moderate cardiomegaly Pulmonary vasculature:There is mild pulmonary vascular congestion Pleural spaces:There is moderate left and small right pleural effusion Upper abdomen:No abnormality seen. Osseous structures: No acute osseous abnormality. Additional findings:Stable loop recorder overlies left chest wall IMPRESSION: Mild improvement in the bilateral pleural effusions. Residual moderate left and small rig ht pleural effusion remains. Moderate cardiomegaly persists. Mild pulmonary vascular congestion persists. Findings may reflects improving CHF or volume overload.
[2019-07-15] MEDS: Minoxidil 2.5 MG TAB PO SCH (08:26)
[2019-07-15] MEDS: Ascorbic Acid 500 mg Chewable Tablet PER TUBE SCH (08:26)
[2019-07-15] MEDS: glipiZIDE 5 MG TAB PER TUBE SCH (08:26)
[2019-07-15] MEDS: Carvedilol 25 MG TAB PER TUBE SCH ×2 (08:26→17:47)
[2019-07-15] MEDS: Amlodipine 5 MG TAB PER TUBE SCH (08:26)
[2019-07-15] MEDS: levETIRAcetam 500 mg/5 ml Oral Solution PER TUBE SCH ×2 (08:26→20:31)
[2019-07-15] MEDS: Pantoprazole 40 MG GRANULES PACKET PER TUBE SCH (08:26)
[2019-07-15] MEDS: Doxazosin 2 MG TAB PER TUBE SCH (20:30)
[2019-07-15] MEDS: cloNIDine 0.1 MG TAB PO SCH (20:30)
[2019-07-15] MEDS: Lorazepam 0.5 MG TAB PER TUBE PRN (20:31)
--- NOTE | 2019-07-15 22:05 | PRG ---
DATE OF SERVICE: 07/15/2019 CHIEF COMPLAINT: The patient states that her abdomen is hurting and she needs medication for bowels, although she is having good bowel movements. She is confused and agitated and appears to be occasionally encephalopathic, previous cardiac arrest. Awaiting APS to obtain a bed for her at the [facility]. OBJECTIVE: ABDOMEN: Soft and nontender. LUNGS: Clear. CARDIAC: Regular rhythm. VITAL SIGNS: Blood pressure is 130/58, pulse 63, and O2 sats 97% on room air. ASSESSMENT: 1. Improving congestive heart failure. 2. Stable anoxic encephalopathy. 3. Persistent deconditioning with minimal improvement with therapy. 4. Type 2 diabetes, controlled to goal. 5. Hypertension, controlled to goal. PLAN: 1. Continue to monitor vital signs closely. 2. Review labs and therapy notes. 3. Continue PT and OT as tolerated. Job ID: [id number]
[2019-07-16] MEDS: hydrALAZINE 25 MG TAB PO SCH ×3 (05:08→21:20)
[2019-07-16] MEDS: Levothyroxine Sodium 25 MCG TAB PER TUBE SCH (05:08)
[2019-07-16] MEDS: Lorazepam 0.5 MG TAB PER TUBE PRN ×2 (05:09→21:22)
[2019-07-16 05:32] LABS: Anion Gap 12 mmol/L (10-20); BUN (Urea Nitrogen) 33 mg/dL (9.8-20.1); Calc. Creatinine Clearance 37 mL/min (70-130); Calcium 8.1 mg/dL (7.8-10.44); Carbon Dioxide 30 mmol/L (23-31); Chloride 99 mmol/L (98-107); Estimated GFR-MDRD 29; Glucose 118 mg/dL (83-110); Sodium 139 mmol/L (136-145)
[2019-07-16 05:45] LABS: Potassium 2.4 mmol/L (3.5-5.1)
[2019-07-16] MEDS: Amlodipine 5 MG TAB PER TUBE SCH (08:20)
[2019-07-16] MEDS: Carvedilol 25 MG TAB PER TUBE SCH ×2 (08:20→17:55)
[2019-07-16] MEDS: glipiZIDE 5 MG TAB PER TUBE SCH (08:20)
[2019-07-16] MEDS: levETIRAcetam 500 mg/5 ml Oral Solution PER TUBE SCH ×2 (08:20→21:20)
[2019-07-16] MEDS: Minoxidil 2.5 MG TAB PO SCH (08:20)
[2019-07-16] MEDS: Pantoprazole 40 MG GRANULES PACKET PER TUBE SCH (08:21)
[2019-07-16] MEDS: Ascorbic Acid 500 mg Chewable Tablet PER TUBE SCH (08:21)
[2019-07-16] MEDS: Potassium Chloride 20 MEQ TAB PO SCH ×2 (15:28→21:20)
[2019-07-16] MEDS: Ondansetron ODT 4 MG TAB PO PRN (15:28)
[2019-07-16] MEDS: cloNIDine 0.1 MG TAB PO SCH (21:19)
[2019-07-16] MEDS: Doxazosin 2 MG TAB PER TUBE SCH (21:20)
[2019-07-16] MEDS: hydrOXYzine 25 MG TAB PER TUBE PRN (21:22)
[2019-07-17] MEDS: Levothyroxine Sodium 25 MCG TAB PER TUBE SCH (05:03)
[2019-07-17] MEDS: hydrALAZINE 25 MG TAB PO SCH ×3 (05:03→20:37)
[2019-07-17] MEDS: Lorazepam 0.5 MG TAB PER TUBE PRN ×2 (05:03→12:04)
[2019-07-17 05:56] LABS: Anion Gap 15 mmol/L (10-20); BUN (Urea Nitrogen) 37 mg/dL (9.8-20.1); Calc. Creatinine Clearance 35 mL/min (70-130); Calcium 8.4 mg/dL (7.8-10.44); Carbon Dioxide 29 mmol/L (23-31); Chloride 98 mmol/L (98-107); Estimated GFR-MDRD 27; Glucose 125 mg/dL (83-110); Sodium 139 mmol/L (136-145)
[2019-07-17 06:10] LABS: Potassium 2.9 mmol/L (3.5-5.1)
[2019-07-17] MEDS: levETIRAcetam 500 mg/5 ml Oral Solution PER TUBE SCH ×2 (08:33→20:37)
[2019-07-17] MEDS: Amlodipine 5 MG TAB PER TUBE SCH (08:33)
[2019-07-17] MEDS: glipiZIDE 5 MG TAB PER TUBE SCH (08:33)
[2019-07-17] MEDS: Ascorbic Acid 500 mg Chewable Tablet PER TUBE SCH (08:33)
[2019-07-17] MEDS: Carvedilol 25 MG TAB PER TUBE SCH ×2 (08:33→17:17)
[2019-07-17] MEDS: Pantoprazole 40 MG GRANULES PACKET PER TUBE SCH (08:34)
[2019-07-17] MEDS: Potassium Chloride 20 MEQ TAB PO SCH ×3 (08:34→20:37)
[2019-07-17] MEDS: Minoxidil 2.5 MG TAB PO SCH (08:34)
[2019-07-17] MEDS: cloNIDine 0.3mg/24 Hour PATCH TD SCH (18:17)
[2019-07-17] MEDS: Doxazosin 2 MG TAB PER TUBE SCH (20:37)
[2019-07-17] MEDS: cloNIDine 0.1 MG TAB PO SCH (20:38)
[2019-07-18] MEDS: hydrOXYzine 25 MG TAB PER TUBE PRN (00:09)
[2019-07-18] MEDS: hydrALAZINE 25 MG TAB PO SCH ×3 (05:22→21:20)
[2019-07-18] MEDS: Levothyroxine Sodium 25 MCG TAB PER TUBE SCH (05:22)
[2019-07-18 05:51] LABS: Anion Gap 14 mmol/L (10-20); BUN (Urea Nitrogen) 41 mg/dL (9.8-20.1); Calc. Creatinine Clearance 34 mL/min (70-130); Calcium 8.3 mg/dL (7.8-10.44); Carbon Dioxide 28 mmol/L (23-31); Chloride 99 mmol/L (98-107); Estimated GFR-MDRD 26; Glucose 111 mg/dL (83-110); Potassium 3.2 mmol/L (3.5-5.1); Sodium 138 mmol/L (136-145)
--- NOTE | 2019-07-18 08:05 | PRG ---
DATE OF SERVICE: 07/16/2019 SUBJECTIVE: The patient lying in the bed with no complaints other than she states that she is having some abdominal distress from parasites and worms in her abdomen, which need to be treated with medication. OBJECTIVE: VITAL SIGNS: Shows blood pressure is 125/59, O2 sats 92% on room air, temperature 97, pulse 73, respirations 20. LUNGS: Clear. CARDIAC: Shows regular rhythm. SKIN/EXTREMITIES: Show 1 to 2+ edema. LABORATORY DATA: Shows persistent hypokalemia potassium 2.4 despite supplemental potassium, sodium 139, chloride 99, BUN 33, creatinine 2.03 which is increased from 1.54 previous day, glucose is 118, calcium 8.1. ASSESSMENT: 1. A 73-year-old white female with a history of anoxic encephalopathy and confusion, status post cardiac arrest. Awaiting placement at the [facility]. Under Adult protective Services. 2. Stage 3 congestive heart failure with no evidence of decompensation, but with persistent elevated BNP and we will repeat tomorrow. 3. Chronic kidney disease, stage 3 deteriorating to stage 4 with no change in medications. No nephrotoxic drugs. No evidence of dehydration. She is eating very well. PLAN: 1. Repeat basic metabolic profile tomorrow. Supplement potassium with KCl 20 mEq three times daily. Repeat laboratories, BMP, BNP tomorrow. 2. Continue monitor vital signs. Blood pressure has improved on minoxidil, but need to monitor for renal function with improved blood pressure. Job ID: [id number]
[2019-07-18] MEDS: Potassium Chloride 20 MEQ TAB PO SCH ×3 (08:57→21:20)
[2019-07-18] MEDS: levETIRAcetam 500 mg/5 ml Oral Solution PER TUBE SCH ×2 (08:57→21:19)
[2019-07-18] MEDS: Pantoprazole 40 MG GRANULES PACKET PER TUBE SCH (08:57)
[2019-07-18] MEDS: Ascorbic Acid 500 mg Chewable Tablet PER TUBE SCH (08:57)
[2019-07-18] MEDS: Amlodipine 5 MG TAB PER TUBE SCH (08:58)
[2019-07-18] MEDS: Minoxidil 2.5 MG TAB PO SCH (08:58)
[2019-07-18] MEDS: Carvedilol 25 MG TAB PER TUBE SCH ×2 (08:58→17:48)
[2019-07-18] MEDS: glipiZIDE 5 MG TAB PER TUBE SCH (08:59)
[2019-07-18] MEDS: cloNIDine 0.1 MG TAB PO SCH (21:19)
[2019-07-18] MEDS: Doxazosin 2 MG TAB PER TUBE SCH (21:19)
[2019-07-19 05:21] LABS: #Eosinphils 0.1 thou/uL (0.0-0.7); #Lymphocytes 1.7 thou/uL (1.20-3.40); #Monocytes 0.4 thou/uL (0.11-0.59); #Neutrophils 2.9 thou/uL (1.40-6.50); %Basophils 0.9 % (0.0-1.0); %Eosinophils 2.2 % (0.0-10.0); %Monocytes 7.9 % (0.0-10.0); Hemoglobin 6.8 g/dL (12.0-16.0); Mean Corpuscular Hemoglobin 25.8 pg (27.0-31.0); Mean Corpuscular Volume 80.5 fL (78.0-98.0); Mean Platelet Volume 8.8 fL (7.4-10.4); Platelet Count 217 thou/uL (130-400); RBC Distribution Width 13.5 % (11.5-14.5); Red Blood Cell (RBC) Count 2.64 mill/uL (4.20-5.40); White Blood Cell (WBC) Count 5.2 thou/uL (4.8-10.8)
[2019-07-19 05:40] LABS: Anion Gap 15 mmol/L (10-20); BUN (Urea Nitrogen) 43 mg/dL (9.8-20.1); Calc. Creatinine Clearance 35 mL/min (70-130); Calcium 8.4 mg/dL (7.8-10.44); Carbon Dioxide 27 mmol/L (23-31); Chloride 102 mmol/L (98-107); Estimated GFR-MDRD 27; Glucose 120 mg/dL (83-110); Potassium 3.5 mmol/L (3.5-5.1); Sodium 140 mmol/L (136-145)
[2019-07-19] MEDS: Levothyroxine Sodium 25 MCG TAB PER TUBE SCH (05:47)
[2019-07-19] MEDS: hydrALAZINE 25 MG TAB PO SCH ×3 (05:47→20:40)
[2019-07-19] MEDS: Pantoprazole 40 MG GRANULES PACKET PER TUBE SCH (08:21)
[2019-07-19] MEDS: Potassium Chloride 20 MEQ TAB PO SCH ×3 (08:21→20:39)
[2019-07-19] MEDS: glipiZIDE 5 MG TAB PER TUBE SCH (08:21)
[2019-07-19] MEDS: Lorazepam 0.5 MG TAB PER TUBE PRN ×2 (08:21→20:40)
[2019-07-19] MEDS: Ascorbic Acid 500 mg Chewable Tablet PER TUBE SCH (08:21)
[2019-07-19] MEDS: Minoxidil 2.5 MG TAB PO SCH (08:21)
[2019-07-19] MEDS: levETIRAcetam 500 mg/5 ml Oral Solution PER TUBE SCH ×2 (08:21→20:39)
[2019-07-19] MEDS: Amlodipine 5 MG TAB PER TUBE SCH (08:22)
[2019-07-19] MEDS: Carvedilol 25 MG TAB PER TUBE SCH ×2 (08:22→16:53)
--- NOTE | 2019-07-19 09:28 | PRG ---
DATE OF SERVICE: 07/17/2019 SUBJECTIVE: The patient lying in bed, in no respiratory distress. No complaints of abdominal pain. She is eating well when fed, but is still very confused, although she responds to questions appropriately at times. OBJECTIVE: VITAL SIGNS: Her temperature is 98.3, pulse 76, respirations 18, O2 saturations 94% on room air, blood pressure 126/59. LUNGS: Clear. CARDIAC: Regular rhythm. SKIN/EXTREMITIES: 1 to 2+ edema. LABORATORY DATA: Potassium increased to 2.9, but still low, on 20 mEq three times daily. Sodium is 139, potassium 3.8, chloride , BUN is still slightly increasing up to 37, creatinine up to 2.16 with a GFR decreasing from 29 to 27. BNP is elevated to 345, which is improved from previous BNP of 834. ASSESSMENT: 1. Slowly improving hypokalemia, on supplementation. 2. Stabilizing chronic kidney disease, but worsened to stage 4. 3. Anoxic encephalopathy persistent. 4. Type 2 diabetes, controlled to goal. 5. Hypertension, controlled to goal. 6. Severe deconditioning with inability to maintain ADLs. PLAN: 1. Await [facility] placement at [facility]. 2. Continue potassium supplementation. 3. Continue daily basic metabolic profile. 4. Continue to monitor for fluid overload. 5. Continue Accu-Cheks to monitor and titrate and control diabetes. 6. Continue to monitor vital signs, on multiple medications. Job ID: [id number]
[2019-07-19] MEDS ORDERED: Sodium Chloride 0.9% 10 ML ONE (12:54)
[2019-07-19] MEDS ORDERED: Furosemide 40 MG TAB PO SCH (18:30)
[2019-07-19] MEDS: Doxazosin 2 MG TAB PER TUBE SCH (20:39)
[2019-07-19] MEDS: cloNIDine 0.1 MG TAB PO SCH (20:39)
[2019-07-19] MEDS: hydrOXYzine 25 MG TAB PER TUBE PRN (20:40)
[2019-07-20 06:01] LABS: #Basophils 0.1 thou/uL (0.0-0.2); #Eosinphils 0.1 thou/uL (0.0-0.7); #Lymphocytes 1.9 thou/uL (1.20-3.40); #Monocytes 0.5 thou/uL (0.11-0.59); #Neutrophils 2.8 thou/uL (1.40-6.50); %Eosinophils 1.6 % (0.0-10.0); %Lymphocytes 36.3 % (21.0-51.0); %Monocytes 9.4 % (0.0-10.0); %Neutrophils 51.8 % (42.0-75.0); Hemoglobin 7.4 g/dL (12.0-16.0); Mean Corpuscular Hemoglobin 25.5 pg (27.0-31.0); Mean Corpuscular Volume 82.1 fL (78.0-98.0); Mean Platelet Volume 8.9 fL (7.4-10.4); Platelet Count 231 thou/uL (130-400); RBC Distribution Width 13.7 % (11.5-14.5); Red Blood Cell (RBC) Count 2.91 mill/uL (4.20-5.40); White Blood Cell (WBC) Count 5.3 thou/uL (4.8-10.8)
[2019-07-20] MEDS: hydrALAZINE 25 MG TAB PO SCH ×3 (06:12→21:03)
[2019-07-20 06:13] LABS: Anion Gap 15 mmol/L (10-20); BUN (Urea Nitrogen) 45 mg/dL (9.8-20.1); Calc. Creatinine Clearance 35 mL/min (70-130); Calcium 8.5 mg/dL (7.8-10.44); Carbon Dioxide 27 mmol/L (23-31); Chloride 103 mmol/L (98-107); Estimated GFR-MDRD 27; Glucose 103 mg/dL (83-110); Potassium 3.7 mmol/L (3.5-5.1); Sodium 141 mmol/L (136-145)
[2019-07-20] MEDS: Levothyroxine Sodium 25 MCG TAB PER TUBE SCH (06:13)
[2019-07-20] MEDS: levETIRAcetam 500 mg/5 ml Oral Solution PER TUBE SCH ×2 (08:39→21:03)
[2019-07-20] MEDS: Pantoprazole 40 MG GRANULES PACKET PER TUBE SCH (08:39)
[2019-07-20] MEDS: Potassium Chloride 20 MEQ TAB PO SCH ×3 (08:39→21:03)
[2019-07-20] MEDS: Amlodipine 5 MG TAB PER TUBE SCH (08:39)
[2019-07-20] MEDS: Carvedilol 25 MG TAB PER TUBE SCH ×2 (08:40→16:35)
[2019-07-20] MEDS: Ascorbic Acid 500 mg Chewable Tablet PER TUBE SCH (08:40)
[2019-07-20] MEDS: Minoxidil 2.5 MG TAB PO SCH (08:40)
[2019-07-20] MEDS: glipiZIDE 5 MG TAB PER TUBE SCH (08:40)
[2019-07-20] MEDS: Doxazosin 2 MG TAB PER TUBE SCH (21:03)
[2019-07-20] MEDS: hydrOXYzine 25 MG TAB PER TUBE PRN (21:04)
[2019-07-20] MEDS: Lorazepam 0.5 MG TAB PER TUBE PRN (21:04)
[2019-07-20] MEDS: cloNIDine 0.1 MG TAB PO SCH (21:04)
[2019-07-21] MEDS: Lorazepam 0.5 MG TAB PER TUBE PRN ×2 (06:04→20:27)
[2019-07-21] MEDS: Levothyroxine Sodium 25 MCG TAB PER TUBE SCH (06:04)
[2019-07-21] MEDS: hydrALAZINE 25 MG TAB PO SCH ×3 (06:04→20:27)
--- NOTE | 2019-07-21 06:04 | PRG ---
DATE OF SERVICE: 07/18/2019 SUBJECTIVE: The patient is lying in bed, in no distress. States she is unable to feed herself or do anything for herself and is basically total assist at this time by nurses. OBJECTIVE: VITAL SIGNS: Shows temperature is 96.8, pulse 76, respirations 18, O2 sats 97% on room air, blood pressure is 130/70. LUNGS: Clear. CARDIAC: Shows regular rhythm. ABDOMEN: Soft, nontender. LABORATORY DATA: Sodium is 138. Potassium is elevated slightly, improved to 3.2, but still low. Chloride 99, bicarb 28, BUN 41, creatinine 2.2, still slowly increasing daily. Accu-Cheks stable from 133 to 144. BNP yesterday was elevated to 345. ASSESSMENT: 1. Severe deconditioning and probable anoxic encephalopathy, status post distant cardiac arrest with inability to maintain ADLs. 2. Chronic kidney disease stage 3 with acute deterioration to stage 4, slowly deteriorating, but stabilizing. The patient is eating well. 3. Hypokalemia, improving with supplemental potassium. 4. Diastolic heart failure with BNP of 345, with no dyspnea or edema. 5. Type 2 diabetes, controlled to goal. PLAN: 1. Continue potassium supplementation. Continue daily basic metabolic profile. 2. Repeat CBC. 3. Continue to monitor fluid overload. 4. Continue to stress adequate oral intake. 5. Continue Accu-Cheks to monitor and titrate to control diabetes. 6. Continue to monitor vital signs. 7. Await APS placement and discuss with Case Management tomorrow. Job ID: [id number]
--- NOTE | 2019-07-21 06:11 | PRG ---
DATE OF SERVICE: 07/20/2019 SUBJECTIVE: The patient feels well, lying in bed, in no distress, but is confused, and unable answer questions appropriately, although alert and oriented to person and place. LABORATORY DATA: Sodium is 141, potassium 3.7, chloride 103, bicarb 27, BUN is stable at 45, creatinine 2.16, GFR 23. Hemoglobin increased to 7.4, hematocrit 23, and white count 5300. OBJECTIVE: VITAL SIGNS: Blood pressure is stable at 119/59, temperature is 98, pulse 76, respirations 18, O2 sats 96% on 3 L. LUNGS: Show decreased breath sounds at bases. CARDIAC: Shows regular rhythm. SKIN/EXTREMITIES: Shows 1 to 2+ edema. ABDOMEN: Soft and nontender. ASSESSMENT: 1. Slightly improved anemia of chronic disease after transfusion. 2. Resolved hypokalemia on supplementation. 3. Chronic kidney disease stage 4, now appears to be stabilizing. 4. Deconditioning with no real improvement. [facility]waiting [facility]. 5. Anoxic encephalopathy with no real improvement. 6. Diastolic heart failure with edema, elevated BNP, hypoxia, and we will get chest x-ray in the a.m. PLAN: Chest x-ray in the a.m., BMP, BNP in the a.m. Discuss discharge planning with APS. Job ID: [id number]
--- NOTE | 2019-07-21 07:19 | PRG ---
DATE OF SERVICE: 07/19/2019 SUBJECTIVE: The patient is lying in the bed, in no distress. No complaints, but unable to do any of her ADLs. OBJECTIVE: VITAL SIGNS: Show her temperature is 98, pulse is 69, blood pressure is 101/70, respirations are 18, O2 saturation is 95% on room air. LUNGS: Clear. CARDIAC: Showed regular rhythm. ABDOMEN: Soft and nontender. SKIN AND EXTREMITIES: Show 1 to 2+ edema. LABORATORY DATA: Shows white count of 5200, hemoglobin down to 6.8 from previous 7.9, hematocrit 21. Sodium improved to 140, potassium 3.5, chloride 102, bicarb 27, BUN 43, creatinine 2.14, glucose 120, calcium 8.4. BNP elevated at 612. ASSESSMENT: 1. Worsening anemia of chronic disease. No evidence of gastrointestinal bleeding. We will give 1 unit of packed cells, this may improve her cardiac function. 2. Diastolic heart failure with increasing BNP, possibly due to increased strain from anemia, and we will monitor closely and give 40 of furosemide after transfusion. 3. Chronic kidney disease, stage IV, now appears to be stabilizing with GFR of 27, creatinine 2.14. 4. Hypokalemia, improved to normal now 3.5, on supplementation of 20 mEq three times daily. 5. Deconditioning with no improvement. 6. Type 2 diabetes, controlled to goal with Accu-Cheks 110 to 139. PLAN: 1. Transfuse 1 unit of packed cells and 40 mg of Lasix p.o. Repeat lab in the a.m. 2. Monitor for exacerbation of CHF. 3. Continue PT, OT, and discuss placement with APS. 4. Continue Accu-Chek's, will monitor and titrate and control diabetes. Job ID: [id number]
[2019-07-21] MEDS: glipiZIDE 5 MG TAB PER TUBE SCH (08:19)
[2019-07-21] MEDS: Amlodipine 5 MG TAB PER TUBE SCH (08:19)
[2019-07-21] MEDS: Carvedilol 25 MG TAB PER TUBE SCH ×2 (08:19→17:26)
[2019-07-21] MEDS: Potassium Chloride 20 MEQ TAB PO SCH ×2 (08:20→14:12)
[2019-07-21] MEDS: Minoxidil 2.5 MG TAB PO SCH (08:20)
[2019-07-21] MEDS: Ascorbic Acid 500 mg Chewable Tablet PER TUBE SCH (08:20)
[2019-07-21] MEDS: Pantoprazole 40 MG GRANULES PACKET PER TUBE SCH (08:20)
[2019-07-21] MEDS: levETIRAcetam 500 mg/5 ml Oral Solution PER TUBE SCH ×2 (08:20→20:27)
[2019-07-21 08:44] LABS: Anion Gap 13 mmol/L (10-20); BUN (Urea Nitrogen) 45 mg/dL (9.8-20.1); Calc. Creatinine Clearance 37 mL/min (70-130); Calcium 8.7 mg/dL (7.8-10.44); Carbon Dioxide 27 mmol/L (23-31); Chloride 105 mmol/L (98-107); Estimated GFR-MDRD 29; Glucose 108 mg/dL (83-110); Potassium 4.3 mmol/L (3.5-5.1); Sodium 141 mmol/L (136-145)
--- NOTE | 2019-07-21 13:18 | RAD ---
PORTABLE CHEST: Date: 07/21/2019 PROVIDED CLINICAL HISTORY: History of congestive heart failure. FINDINGS: Comparison with 07/15/2019. The cardiac silhouette remains enlarged. Atherosclerosis is redemonstrated. Implanted loop recorder d evice again overlies the left chest. Prominence of the pulmonary vasculature and pulmonary interstiti um persists. Left basilar pleural and/or parenchymal opacity is redemonstrated. No evidence for pneum othorax. Small amount of right pleural fluid may also be present. IMPRESSION: Cardiomegaly and findings suggesting congestive failure with persistent left basilar pleural-parenchy mal opacity. POS: OFF
[2019-07-21] MEDS: Doxazosin 2 MG TAB PER TUBE SCH (20:27)
[2019-07-21] MEDS: cloNIDine 0.1 MG TAB PO SCH (20:27)
[2019-07-21] MEDS: hydrOXYzine 25 MG TAB PER TUBE PRN (20:28)
[2019-07-22] MEDS: Lorazepam 0.5 MG TAB PER TUBE PRN (05:31)
[2019-07-22] MEDS: Levothyroxine Sodium 25 MCG TAB PER TUBE SCH (05:31)
[2019-07-22] MEDS: Furosemide 40 MG TAB PO SCH (08:10)
[2019-07-22] MEDS: hydrALAZINE 25 MG TAB PO SCH ×3 (08:10→20:23)
[2019-07-22] MEDS: Carvedilol 25 MG TAB PER TUBE SCH ×2 (08:10→17:37)
[2019-07-22] MEDS: glipiZIDE 5 MG TAB PER TUBE SCH (08:10)
[2019-07-22] MEDS: Pantoprazole 40 MG GRANULES PACKET PER TUBE SCH (08:11)
[2019-07-22] MEDS: levETIRAcetam 500 mg/5 ml Oral Solution PER TUBE SCH ×2 (08:11→20:22)
[2019-07-22] MEDS: Minoxidil 2.5 MG TAB PO SCH (08:11)
[2019-07-22] MEDS: Ascorbic Acid 500 mg Chewable Tablet PER TUBE SCH (08:11)
[2019-07-22] MEDS: Amlodipine 5 MG TAB PER TUBE SCH (08:11)
[2019-07-22] MEDS: Potassium Chloride 20 MEQ TAB PO SCH (08:11)
[2019-07-22] MEDS: cloNIDine 0.1 MG TAB PO SCH (20:22)
[2019-07-22] MEDS: Doxazosin 2 MG TAB PER TUBE SCH (20:22)
[2019-07-23] MEDS: hydrALAZINE 25 MG TAB PO SCH ×3 (05:49→21:02)
[2019-07-23] MEDS: Levothyroxine Sodium 25 MCG TAB PER TUBE SCH (05:49)
[2019-07-23 06:07] LABS: Anion Gap 13 mmol/L (10-20); BUN (Urea Nitrogen) 45 mg/dL (9.8-20.1); Calc. Creatinine Clearance 40 mL/min (70-130); Calcium 8.8 mg/dL (7.8-10.44); Carbon Dioxide 27 mmol/L (23-31); Chloride 107 mmol/L (98-107); Estimated GFR-MDRD 32; Glucose 89 mg/dL (83-110); Potassium 5.2 mmol/L (3.5-5.1); Sodium 142 mmol/L (136-145)
[2019-07-23] MEDS: glipiZIDE 5 MG TAB PER TUBE SCH (08:26)
[2019-07-23] MEDS: Furosemide 40 MG TAB PO SCH (08:26)
[2019-07-23] MEDS: Ascorbic Acid 500 mg Chewable Tablet PER TUBE SCH (08:31)
[2019-07-23] MEDS: levETIRAcetam 500 mg/5 ml Oral Solution PER TUBE SCH ×2 (08:31→21:00)
[2019-07-23] MEDS: Carvedilol 25 MG TAB PER TUBE SCH ×2 (08:31→17:34)
[2019-07-23] MEDS: Pantoprazole 40 MG GRANULES PACKET PER TUBE SCH (08:31)
[2019-07-23] MEDS: Minoxidil 2.5 MG TAB PO SCH (08:36)
[2019-07-23] MEDS: Amlodipine 5 MG TAB PER TUBE SCH (08:37)
[2019-07-23] MEDS: Potassium Chloride 20 MEQ TAB PO SCH (08:38)
--- NOTE | 2019-07-23 12:23 | PRG ---
DATE OF SERVICE: 07/23/2019 SUBJECTIVE: The patient is lying in bed with no complaints. She is still on oxygen, but is denying any shortness of breath or chest pain. She is eating when being fed. OBJECTIVE: VITAL SIGNS: Showed to have temperature 98.3, pulse 67, respirations 18, O2 sat is 97% on 2 L, and blood pressure 130/63. LUNGS: Showed decreased breath sounds at the bases and few rales. CARDIAC: Shows regular rhythm. ABDOMEN: Obese and nontender. LABORATORY DATA: Sodium 141, potassium 4.3, chloride 105, bicarb 27, BUN 45, creatinine 2.05, glucose 108, and calcium 8.7. BNP is 271. DIAGNOSTIC DATA: Chest x-ray does show pulmonary congestion with persistent left basilar pleural-parenchymal opacity. ASSESSMENT: 1. Anoxic encephalopathy, status post cardiac arrest with inability to maintain ADLs. Awaiting placement by APS at [facility]. 2. Congestive heart failure with mild exacerbation with elevated BNP and pulmonary congestion. We will start on Lasix 40 mg daily and monitor. 3. Chronic kidney disease, stage 4, appears to be stabilized. We will monitor closely with diuretics with repeat BMP in 2 days. 4. Hypokalemia, resolved on supplementation. 5. Anemia of chronic disease, slightly improved after transfusion. We will monitor. PLAN: 1. Furosemide 40 mg daily. Check BMP in 2 days. Continue to discuss discharge planning with APS. 2. Continue to monitor assistance with ADLs. Job ID: [id number]
--- NOTE | 2019-07-23 12:31 | PRG ---
DATE OF SERVICE: 07/22/2019 SUBJECTIVE: The patient feels well, awake and alert, but confused, and in no distress. Somewhat tearful at times when questioned. OBJECTIVE: VITAL SIGNS: Her blood pressure is 147/66, temperature is 97, pulse 65, respirations 18, and O2 saturations 95% on 2 L. LUNGS: Show decreased breath sounds in the bases. Few rales. CARDIAC: Showed regular rhythm. ABDOMEN: Soft and nontender. SKIN AND EXTREMITIES: Show trace edema. ASSESSMENT: 1. Type 2 diabetes, controlled to goal with Accu-Cheks, range 115 to 140. 2. Anoxic encephalopathy, status post cardiac arrest with inability to maintain ADLs and cooperate with PT. 3. Diastolic congestive heart failure with congestion on chest x-ray and hypoxemia, tolerating Lasix 40 mg daily. 4. Chronic kidney disease, stage 4, appears to have stabilized with a GFR of 27. PLAN: 1. Check BMP in the a.m. Continue furosemide 40 daily. Continue to monitor and assist with ADLs. 2. Continue Accu-Cheks to monitor and titrate and control diabetes. 3. Await response from [facility]PS on placement in a [facility]. Job ID: [id number]
--- NOTE | 2019-07-23 12:37 | PRG ---
DATE OF SERVICE: 07/23/2019 SUBJECTIVE: The patient is lying in the bed resting, in no distress. Somewhat tearful when asked questions and confused. LABORATORY DATA: Show her sodium 142, potassium 5.2 on supplemental potassium, chloride 107, bicarb 27, BUN 45, creatinine 1.9. Accu-Cheks ranged 93 to 138. OBJECTIVE: VITAL SIGNS: Blood pressure is 121/53, pulse 68, O2 saturations 98% on 2 L. ASSESSMENT: 1. Stable anoxic encephalopathy with inability to maintain activities of daily living. 2. Improving diastolic heart failure, on furosemide. 3. Chronic kidney disease, stage 4, slightly improved with diuresis, and we will continue. 4. Hyperkalemia on potassium supplementation. We will discontinue completely. 5. Hypertension, controlled to goal. 6. Type 2 diabetes, controlled to goal. 7. Seizure disorder. No recurrence on Keppra. 8. Hypothyroidism, stable. PLAN: 1. Discontinue potassium. 2. Continue furosemide 40 daily. 3. Repeat BMP and BNP on Friday. 4. Await APS decision on admission to the skilled nursing. Job ID: [id number]
[2019-07-23] MEDS: cloNIDine 0.1 MG TAB PO SCH (21:00)
[2019-07-23] MEDS: Doxazosin 2 MG TAB PER TUBE SCH (21:02)
[2019-07-24] MEDS: hydrALAZINE 25 MG TAB PO SCH ×3 (05:16→20:50)
[2019-07-24] MEDS: Levothyroxine Sodium 25 MCG TAB PER TUBE SCH (05:16)
[2019-07-24] MEDS: Amlodipine 5 MG TAB PER TUBE SCH (09:05)
[2019-07-24] MEDS: Pantoprazole 40 MG GRANULES PACKET PER TUBE SCH (09:05)
[2019-07-24] MEDS: Minoxidil 2.5 MG TAB PO SCH (09:05)
[2019-07-24] MEDS: Ascorbic Acid 500 mg Chewable Tablet PER TUBE SCH (09:05)
[2019-07-24] MEDS: levETIRAcetam 500 mg/5 ml Oral Solution PER TUBE SCH ×2 (09:05→20:49)
[2019-07-24] MEDS: glipiZIDE 5 MG TAB PER TUBE SCH (09:05)
[2019-07-24] MEDS: Furosemide 40 MG TAB PO SCH (09:05)
[2019-07-24] MEDS: Carvedilol 25 MG TAB PER TUBE SCH ×2 (09:05→18:08)
--- NOTE | 2019-07-24 15:20 | PRG ---
DATE OF SERVICE: 07/24/2019 SUBJECTIVE: Ms. Kelley is doing the same. Denies any complaints. No family at bedside. OBJECTIVE: VITAL SIGNS: She is afebrile. Heart rate 62, respirations 15, oxygen saturation 98% on room air, blood pressure 134/63. CARDIOVASCULAR: S1 and S2 plus. RESPIRATORY: Normal vesicular breath sounds. ABDOMEN: Soft, nontender. Bowel sounds heard in all quadrants. EXTREMITIES: Without cyanosis or clubbing. CENTRAL NERVOUS SYSTEM: No change. IMPRESSION: 1. Diabetes mellitus, type 2. 2. Hypertension. 3. History of cerebrovascular accident with residual deficits. 4. Deconditioning. 5. History of anemia, requiring blood transfusion. PLAN: 1. Continue current medications. 2. Heart healthy diet. 3. DVT and stress ulcer prophylaxis. 4. Decubitus precautions. 5. Placement. 6. Discussed with the patient and nursing in detail. Job ID: [id number]
[2019-07-24] MEDS: cloNIDine 0.3mg/24 Hour PATCH TD SCH (18:08)
[2019-07-24] MEDS: cloNIDine 0.1 MG TAB PO SCH (20:50)
[2019-07-24] MEDS: Doxazosin 2 MG TAB PER TUBE SCH (20:50)
[2019-07-25] MEDS: hydrALAZINE 25 MG TAB PO SCH ×3 (06:41→21:26)
[2019-07-25] MEDS: Levothyroxine Sodium 25 MCG TAB PER TUBE SCH (06:41)
[2019-07-25] MEDS: levETIRAcetam 500 mg/5 ml Oral Solution PER TUBE SCH ×2 (08:47→21:26)
[2019-07-25] MEDS: Pantoprazole 40 MG GRANULES PACKET PER TUBE SCH (08:47)
[2019-07-25] MEDS: Minoxidil 2.5 MG TAB PO SCH (08:47)
[2019-07-25] MEDS: Amlodipine 5 MG TAB PER TUBE SCH (08:47)
[2019-07-25] MEDS: Furosemide 40 MG TAB PO SCH (08:48)
[2019-07-25] MEDS: Carvedilol 25 MG TAB PER TUBE SCH ×2 (08:48→17:34)
[2019-07-25] MEDS: glipiZIDE 5 MG TAB PER TUBE SCH (08:48)
[2019-07-25] MEDS: Ascorbic Acid 500 mg Chewable Tablet PER TUBE SCH (08:48)
--- NOTE | 2019-07-25 15:45 | PRG ---
DATE OF SERVICE: 07/25/2019 SUBJECTIVE: Ms. Kelley is sleeping but arousable. Denies any questions or concerns. OBJECTIVE: VITAL SIGNS: She is afebrile. Heart rate 66, respirations 17, oxygen saturation 99% on 2 L, blood pressure 138/64. CARDIOVASCULAR SYSTEM: S1 and S2 plus. RESPIRATORY SYSTEM: Normal vesicular breath sounds. ABDOMEN: Soft, nontender. Bowel sounds are heard in all quadrants. EXTREMITIES: Without cyanosis or clubbing. IMPRESSION: 1. Chronic diastolic congestive heart failure. 2. Chronic kidney disease, stage 4. 3. Hypertension. 4. Diabetes mellitus, type 2. 5. Seizure disorder. 6. Hypothyroidism. 7. History of cerebrovascular accident and anoxic encephalopathy. PLAN: 1. Continue current medications. 2. Nutritional support with heart-healthy diet. 3. Seizure precautions. 4. DVT and stress ulcer prophylaxis. 5. Decubitus precautions. 6. Routine laboratory values. 7. Dr. Angelina martinez [facility] [facility]. Job ID: [id number]
[2019-07-25] MEDS: cloNIDine 0.1 MG TAB PO SCH (21:25)
[2019-07-25] MEDS: Doxazosin 2 MG TAB PER TUBE SCH (21:26)
[2019-07-25] MEDS: Lorazepam 0.5 MG TAB PER TUBE PRN (21:34)
[2019-07-26] MEDS: hydrALAZINE 25 MG TAB PO SCH ×3 (06:04→20:53)
[2019-07-26] MEDS: Levothyroxine Sodium 25 MCG TAB PER TUBE SCH (06:04)
[2019-07-26 07:10] LABS: #Eosinphils 0.1 thou/uL (0.0-0.7); #Lymphocytes 1.8 thou/uL (1.20-3.40); #Monocytes 0.5 thou/uL (0.11-0.59); #Neutrophils 2.6 thou/uL (1.40-6.50); %Basophils 0.7 % (0.0-1.0); %Eosinophils 1.6 % (0.0-10.0); %Lymphocytes 36.1 % (21.0-51.0); %Neutrophils 52.6 % (42.0-75.0); Hemoglobin 7.9 g/dL (12.0-16.0); Mean Corpuscular HGB CONC 30.7 g/dL (32.0-36.0); Mean Corpuscular Hemoglobin 25.5 pg (27.0-31.0); Mean Platelet Volume 8.1 fL (7.4-10.4); Platelet Count 236 thou/uL (130-400); RBC Distribution Width 13.9 % (11.5-14.5); Red Blood Cell (RBC) Count 3.11 mill/uL (4.20-5.40)
[2019-07-26 07:20] LABS: Anion Gap 13 mmol/L (10-20); BUN (Urea Nitrogen) 45 mg/dL (9.8-20.1); Calc. Creatinine Clearance 42 mL/min (70-130); Calcium 9.1 mg/dL (7.8-10.44); Carbon Dioxide 26 mmol/L (23-31); Chloride 106 mmol/L (98-107); Estimated GFR-MDRD 31; Glucose 103 mg/dL (83-110); Potassium 5.1 mmol/L (3.5-5.1); Sodium 140 mmol/L (136-145)
[2019-07-26] MEDS: Carvedilol 25 MG TAB PER TUBE SCH ×2 (08:27→17:40)
[2019-07-26] MEDS: levETIRAcetam 500 mg/5 ml Oral Solution PER TUBE SCH ×2 (08:27→20:52)
[2019-07-26] MEDS: Amlodipine 5 MG TAB PER TUBE SCH (08:27)
[2019-07-26] MEDS: Minoxidil 2.5 MG TAB PO SCH (08:27)
[2019-07-26] MEDS: Furosemide 40 MG TAB PO SCH (08:28)
[2019-07-26] MEDS: Pantoprazole 40 MG GRANULES PACKET PER TUBE SCH (08:28)
[2019-07-26] MEDS: Ascorbic Acid 500 mg Chewable Tablet PER TUBE SCH (08:28)
[2019-07-26] MEDS: glipiZIDE 5 MG TAB PER TUBE SCH (08:28)
--- NOTE | 2019-07-26 17:23 | PRG ---
DATE OF SERVICE: 07/26/2019 SUBJECTIVE: The patient lying in bed, resting. No complaints. Breathing much easier, has been taken off oxygen and no respiratory distress. OBJECTIVE: Shows O2 sats 96% on room air. Temperature is 98, pulse 66, respirations 20. LUNGS: Clear. CARDIAC: Showed regular rhythm. ABDOMEN: Soft, nontender. LABORATORY DATA: Laboratory showed a white count 5000, hemoglobin up slightly to 7.9, hematocrit 25. Accu-Chek range 103 to 106. Sodium 140, potassium 5.1, chloride 106, bicarb 26, BUN stable at 45, creatinine stable at 1.92. BNP is 226, which is improved from 271 last week and from 612 week before. ASSESSMENT: 1. Anoxic encephalopathy, stable. 2. Diastolic heart failure improving with decreasing BNP. 3. Chronic kidney disease, stage 4, improved and stabilized, GFR 31 on furosemide. 4. Type 2 diabetes, controlled to goal. PLAN: Continue supportive care. Continue to await APS instructions. This patient unable to maintain ADLs. Continue to slowly diurese and monitor renal function. Job ID: [id number]
[2019-07-26] MEDS: cloNIDine 0.1 MG TAB PO SCH (20:53)
[2019-07-26] MEDS: Doxazosin 2 MG TAB PER TUBE SCH (20:53)
[2019-07-27] MEDS: hydrALAZINE 25 MG TAB PO SCH ×3 (05:29→20:41)
[2019-07-27] MEDS: Levothyroxine Sodium 25 MCG TAB PER TUBE SCH (05:30)
[2019-07-27] MEDS: Pantoprazole 40 MG GRANULES PACKET PER TUBE SCH (08:05)
[2019-07-27] MEDS: levETIRAcetam 500 mg/5 ml Oral Solution PER TUBE SCH ×2 (08:05→20:42)
[2019-07-27] MEDS: Furosemide 40 MG TAB PO SCH (08:05)
[2019-07-27] MEDS: Minoxidil 2.5 MG TAB PO SCH (08:05)
[2019-07-27] MEDS: Carvedilol 25 MG TAB PER TUBE SCH ×2 (08:05→17:02)
[2019-07-27] MEDS: Ascorbic Acid 500 mg Chewable Tablet PER TUBE SCH (08:05)
[2019-07-27] MEDS: glipiZIDE 5 MG TAB PER TUBE SCH (08:05)
[2019-07-27] MEDS: Amlodipine 5 MG TAB PER TUBE SCH (08:05)
--- NOTE | 2019-07-27 17:53 | PRG ---
DATE OF SERVICE: 07/27/2019 SUBJECTIVE: The patient feels well, lying in bed, no distress, agitated with the nurses at times, not cleaning her correctly of what she is eating, and she is breathing well. OBJECTIVE: VITAL SIGNS: O2 sats 96% on 2 L, temperature is 97, pulse 72, respirations 18, blood pressure 142/65. LUNGS: Clear. CARDIAC: Regular rhythm. LABORATORY DATA: Hematocrit is 25, hemoglobin is 7.9. Accu-Cheks 112-119. ASSESSMENT: 1. Stable anoxic encephalopathy, status post cardiac arrest. 2. Diastolic heart failure, slowly improving. 3. Chronic kidney disease stage 4, stabilized. 4. Type 2 diabetes, controlled to goal. PLAN: 1. Discuss legal actions to make . 2. Discuss weaning off oxygen with therapy. 3. Continue Accu-Cheks. Monitor and titrate and control diabetes. 4. Continue slowly diuresis and monitor renal function with BMP in the a.m. Job ID: [id number]
[2019-07-27] MEDS: Doxazosin 2 MG TAB PER TUBE SCH (20:42)
[2019-07-27] MEDS: cloNIDine 0.1 MG TAB PO SCH (20:42)
[2019-07-28] MEDS: Levothyroxine Sodium 25 MCG TAB PER TUBE SCH (05:14)
[2019-07-28] MEDS: hydrALAZINE 25 MG TAB PO SCH ×3 (05:14→21:16)
[2019-07-28 07:14] LABS: Anion Gap 13 mmol/L (10-20); BUN (Urea Nitrogen) 46 mg/dL (9.8-20.1); Calc. Creatinine Clearance 39 mL/min (70-130); Calcium 8.9 mg/dL (7.8-10.44); Carbon Dioxide 28 mmol/L (23-31); Chloride 107 mmol/L (98-107); Estimated GFR-MDRD 29; Glucose 95 mg/dL (83-110); Potassium 4.8 mmol/L (3.5-5.1); Sodium 143 mmol/L (136-145)
[2019-07-28] MEDS: Furosemide 40 MG TAB PO SCH (07:57)
[2019-07-28] MEDS: glipiZIDE 5 MG TAB PER TUBE SCH (07:58)
[2019-07-28] MEDS: Pantoprazole 40 MG GRANULES PACKET PER TUBE SCH (08:26)
[2019-07-28] MEDS: levETIRAcetam 500 mg/5 ml Oral Solution PER TUBE SCH ×2 (08:26→21:16)
[2019-07-28] MEDS: Amlodipine 5 MG TAB PER TUBE SCH (08:27)
[2019-07-28] MEDS: Ascorbic Acid 500 mg Chewable Tablet PER TUBE SCH (08:27)
[2019-07-28] MEDS: Minoxidil 2.5 MG TAB PO SCH (08:27)
[2019-07-28] MEDS: Carvedilol 25 MG TAB PER TUBE SCH ×2 (08:28→17:38)
[2019-07-28] MEDS: cloNIDine 0.1 MG TAB PO SCH (21:15)
[2019-07-28] MEDS: Doxazosin 2 MG TAB PER TUBE SCH (21:16)
[2019-07-29] MEDS: Levothyroxine Sodium 25 MCG TAB PER TUBE SCH (06:02)
[2019-07-29] MEDS: hydrALAZINE 25 MG TAB PO SCH ×3 (06:02→20:32)
[2019-07-29] MEDS: Ascorbic Acid 500 mg Chewable Tablet PER TUBE SCH (08:39)
[2019-07-29] MEDS: Amlodipine 5 MG TAB PER TUBE SCH (08:39)
[2019-07-29] MEDS: Carvedilol 25 MG TAB PER TUBE SCH ×2 (08:40→17:31)
[2019-07-29] MEDS: Furosemide 40 MG TAB PO SCH (08:40)
[2019-07-29] MEDS: Minoxidil 2.5 MG TAB PO SCH (08:41)
[2019-07-29] MEDS: levETIRAcetam 500 mg/5 ml Oral Solution PER TUBE SCH ×2 (08:41→20:31)
[2019-07-29] MEDS: glipiZIDE 5 MG TAB PER TUBE SCH (08:41)
[2019-07-29] MEDS: Pantoprazole 40 MG GRANULES PACKET PER TUBE SCH (08:41)
[2019-07-29] MEDS: cloNIDine 0.1 MG TAB PO SCH (20:31)
[2019-07-29] MEDS: Doxazosin 2 MG TAB PER TUBE SCH (20:32)
[2019-07-30] MEDS: hydrALAZINE 25 MG TAB PO SCH ×3 (05:18→20:23)
[2019-07-30] MEDS: Levothyroxine Sodium 25 MCG TAB PER TUBE SCH (05:18)
[2019-07-30] MEDS: glipiZIDE 5 MG TAB PER TUBE SCH (08:23)
[2019-07-30] MEDS: levETIRAcetam 500 mg/5 ml Oral Solution PER TUBE SCH ×2 (08:23→20:23)
[2019-07-30] MEDS: Furosemide 40 MG TAB PO SCH (08:23)
[2019-07-30] MEDS: Ascorbic Acid 500 mg Chewable Tablet PER TUBE SCH (08:23)
[2019-07-30] MEDS: Amlodipine 5 MG TAB PER TUBE SCH (08:23)
[2019-07-30] MEDS: Pantoprazole 40 MG GRANULES PACKET PER TUBE SCH (08:23)
[2019-07-30] MEDS: Minoxidil 2.5 MG TAB PO SCH (08:24)
[2019-07-30] MEDS: Carvedilol 25 MG TAB PER TUBE SCH ×2 (08:24→17:19)
[2019-07-30] MEDS: cloNIDine 0.1 MG TAB PO SCH (20:22)
[2019-07-30] MEDS: Doxazosin 2 MG TAB PER TUBE SCH (20:23)
[2019-07-31] MEDS: Levothyroxine Sodium 25 MCG TAB PER TUBE SCH (05:28)
[2019-07-31] MEDS: hydrALAZINE 25 MG TAB PO SCH ×3 (05:28→21:06)
[2019-07-31] MEDS: Furosemide 40 MG TAB PO SCH (07:46)
[2019-07-31] MEDS: Amlodipine 5 MG TAB PER TUBE SCH (07:46)
[2019-07-31] MEDS: glipiZIDE 5 MG TAB PER TUBE SCH (07:46)
[2019-07-31] MEDS: Carvedilol 25 MG TAB PER TUBE SCH ×2 (07:46→17:09)
[2019-07-31] MEDS: levETIRAcetam 500 mg/5 ml Oral Solution PER TUBE SCH ×2 (07:48→21:03)
[2019-07-31] MEDS: Ascorbic Acid 500 mg Chewable Tablet PER TUBE SCH (07:48)
[2019-07-31] MEDS: Minoxidil 2.5 MG TAB PO SCH (07:49)
[2019-07-31] MEDS: Pantoprazole 40 MG GRANULES PACKET PER TUBE SCH (07:49)
--- NOTE | 2019-07-31 14:38 | PRG ---
DATE OF SERVICE: 07/31/2019 SUBJECTIVE: Ms. Kelley is doing the same. Resting in bed. No family at bedside. OBJECTIVE: VITAL SIGNS: She is afebrile, heart rate 66, respirations 18, oxygen saturation 96% on 1.5 L, blood pressure 135/62. CARDIOVASCULAR: S1 and S2 plus. RESPIRATORY: Normal vesicular breath sounds. ABDOMEN: Soft and nontender. Bowel sounds heard in all quadrants. EXTREMITIES: Without cyanosis or clubbing. CENTRAL NERVOUS SYSTEM: Residual effects of old CVA. IMPRESSION: 1. Diabetes mellitus, type 2. 2. Hypertension. 3. Hypothyroidism. 4. Chronic diastolic congestive heart failure, well compensated. 5. Chronic kidney disease, stage 4. 6. History of cerebrovascular accident with anoxic encephalopathy and seizure disorder. PLAN: 1. Continue current medications. 2. 1800-calorie heart-healthy ADA diet. 3. Accu-Cheks with sliding scale coverage. 4. Seizure precautions. 5. DVT and stress ulcer prophylaxis. 6. Routine laboratory values. 7. Discharge planning. Job ID: [id number]
[2019-07-31] MEDS: cloNIDine 0.3mg/24 Hour PATCH TD SCH (18:14)
[2019-07-31] MEDS: Doxazosin 2 MG TAB PER TUBE SCH (21:03)
[2019-07-31] MEDS: cloNIDine 0.1 MG TAB PO SCH (21:03)
[2019-08-01] MEDS: Levothyroxine Sodium 25 MCG TAB PER TUBE SCH (05:25)
[2019-08-01] MEDS: hydrALAZINE 25 MG TAB PO SCH ×3 (05:26→21:30)
[2019-08-01] MEDS: Furosemide 40 MG TAB PO SCH (07:55)
[2019-08-01] MEDS: Amlodipine 5 MG TAB PER TUBE SCH (07:55)
[2019-08-01] MEDS: Carvedilol 25 MG TAB PER TUBE SCH ×2 (07:55→17:37)
[2019-08-01] MEDS: glipiZIDE 5 MG TAB PER TUBE SCH (07:55)
[2019-08-01] MEDS: Minoxidil 2.5 MG TAB PO SCH (07:57)
[2019-08-01] MEDS: Ascorbic Acid 500 mg Chewable Tablet PER TUBE SCH (07:57)
[2019-08-01] MEDS: levETIRAcetam 500 mg/5 ml Oral Solution PER TUBE SCH ×2 (07:57→21:31)
[2019-08-01] MEDS: Pantoprazole 40 MG GRANULES PACKET PER TUBE SCH (07:58)
--- NOTE | 2019-08-01 15:37 | PRG ---
DATE OF SERVICE: 08/01/2019 SUBJECTIVE: Ms. Kelley is doing the same. Denies any complaints. Discussed with nursing. OBJECTIVE: VITAL SIGNS: She is afebrile, heart rate 69, respirations 16, oxygen saturation 98% on 1.5 L nasal cannula, and blood pressure 120/58. CARDIOVASCULAR SYSTEM: S1 and S2 plus. RESPIRATORY SYSTEM: Normol vesicular breath sounds. ABDOMEN: Soft and nontender. Bowel sounds heard in all quadrants. EXTREMITIES: Without cyanosis or clubbing. CENTRAL NERVOUS SYSTEM: Residual deficits from her old CVA. LABORATORY DATA: Blood sugars are 138, 97, 115, 102, and 124. IMPRESSION: 1. Diabetes mellitus type 2, well controlled. 2. Hypertension, well controlled. 3. Hypothyroidism. 4. Chronic diastolic congestive heart failure. 5. Chronic kidney disease, stage 4. 6. History of cerebrovascular accident with anoxic encephalopathy and seizure disorder with significant residual deficits. PLAN: 1. Continue current medications. 2. 1800-calorie heart healthy ADA diet. 3. Accu-Cheks with sliding scale coverage. 4. Monitor blood pressure and adjust medications as needed. 5. Seizure precaution. 6. Routine laboratory values. 7. Discharge planning. 8. Dr. Angelina gutierrez. Job ID: [id number]
[2019-08-01] MEDS: Doxazosin 2 MG TAB PER TUBE SCH (21:30)
[2019-08-01] MEDS: cloNIDine 0.1 MG TAB PO SCH (21:30)
[2019-08-02] MEDS: hydrALAZINE 25 MG TAB PO SCH (05:17)
[2019-08-02] MEDS: Levothyroxine Sodium 25 MCG TAB PER TUBE SCH (05:19)
[2019-08-02 05:21] VITALS: BMI 32.8
[2019-08-02 07:54] VITALS: BP 125/60; TEMP 96.4
[2019-08-02] MEDS: glipiZIDE 5 MG TAB PER TUBE SCH (08:23)
[2019-08-02] MEDS: Furosemide 40 MG TAB PO SCH (08:23)
[2019-08-02] MEDS: levETIRAcetam 500 mg/5 ml Oral Solution PER TUBE SCH (08:23)
[2019-08-02] MEDS: Pantoprazole 40 MG GRANULES PACKET PER TUBE SCH (08:23)
[2019-08-02] MEDS: Carvedilol 25 MG TAB PER TUBE SCH (08:24)
[2019-08-02] MEDS: Ascorbic Acid 500 mg Chewable Tablet PER TUBE SCH (08:24)
[2019-08-02] MEDS: Amlodipine 5 MG TAB PER TUBE SCH (08:24)
[2019-08-02] MEDS: Minoxidil 2.5 MG TAB PO SCH (08:24)
--- NOTE | 2019-08-04 03:00 | PQF ---
Alicia Kelley POLLACHI MD [id number] CLINICAL DOCUMENTATION CLARIFICATION FORM: POST DISCHARGE Addendum to original discharge summary date: ____ Late entry note date: __ DATE:08/04/2019 ATTN:VIVI TEIXEIRA MD Please exercise your independent, professional judgment in responding to the clarification form. Clinical indicators are provided on the bottom of this form for your review Please check appropriate box(s): Conflicting documentation was noted in the Medical Record, please clarify if patient is being treated/monitored for: [ x ] Chronic diastolic heart failure [ ] Acute on chronic diastolic heart failure [ ] Other diagnosis [ ] Unable to determine In addition, please specify: Present on Admission (POA): [ ] Yes [ ] No [ x ] Unable to determine For continuity of documentation, please document condition throughout progress notes and discharge summary. Thank You. CLINICAL INDICATORS - SIGNS / SYMPTOMS/ LABS 1 to 2 + edema-Documented in PN on 07/18 by Angelina perea MD BNP is elevated to 345 which is improved from previous BNP of 834 -Documented in PN on 07/18 by Angelina perea MD Monitor for exacerbation of CHF-Documented in PN on 07/21 by Angelina perea MD Congestive heart failure with mild exacerbation with elevated BNP and pulmonary congestion -Documented in PN on 07/23 by Angelina perea MD Chronic diastolic heart failure-Documented in PN on 08/01 by VIVI TEIXEIRA MD RISK FACTORS HTN-Documented in PN on 08/01 by VIVI TEIXEIRA MD CKD stage 4-Documented in PN on 08/01 by VIVI TEIXEIRA MD TREATMENT Continue to monitor for fluid overload-Documented in PN on 07/18 by Angelina perea MD We will start on Lasix 40 mg daily and monitor -Documented in PN on 07/23 by Angelina perea MD Lasix 40 mg PO daily -Documented in Medication snapshot [employer] Winform Viewer (This form is maintained as a part of the permanent medical record) 2014 [employer]. All Rights Reserved [email or web address] [not [email or web address]] [email or web address]
== END 2019-08-02 13:50 | DRG 292 ==
LOC: UNDOADMIN 20:16 → NAV ACUTE 20:16
PROVIDERS: ADMIT Internal Medicine; ATTEND Internal Medicine
PROC: 30233N1 Transfusion of Nonautologous Red Blood Cells into Peripheral Vein, Percutaneous Approach (ICD-10-PCS; principal; 2019-06-17)
DX: I13.0 Hypertensive heart and chronic kidney disease with heart failure and stage 1 through stage 4 chronic kidney disease, or unspecified chronic kidney disease (principal); N39.0 Urinary tract infection, site not specified; Z16.20 Resistance to unspecified antibiotic; F03.91 Unspecified dementia, unspecified severity, with behavioral disturbance; N18.4 Chronic kidney disease, stage 4 (severe); I50.32 Chronic diastolic (congestive) heart failure; G93.1 Anoxic brain damage, not elsewhere classified; D63.8 Anemia in other chronic diseases classified elsewhere; B96.5 Pseudomonas (aeruginosa) (mallei) (pseudomallei) as the cause of diseases classified elsewhere; R15.9 Full incontinence of feces; R32 Unspecified urinary incontinence; E11.22 Type 2 diabetes mellitus with diabetic chronic kidney disease; Z93.0 Tracheostomy status; Z99.81 Dependence on supplemental oxygen; Z93.1 Gastrostomy status; R53.81 Other malaise; Z86.74 Personal history of sudden cardiac arrest; G40.909 Epilepsy, unspecified, not intractable, without status epilepticus; E87.6 Hypokalemia; E03.9 Hypothyroidism, unspecified; E87.5 Hyperkalemia
CPT/HCPCS: 36415; 36416; 36430; 71045; 80048; 80053; 81001; 82150; 82274; 82607; 82728; 82746; 83036; 83880; 83921; 85025; 85046; 85610; 86850; 86900; 86901; 87077; 87086; 87186; 87804; P9016; Q0162